=== PATIENT | female | born 1955 | race Caucasian/White ===

== ENCOUNTER 2017-03-02 08:56 | Day surgery (SDC) | payer BC ==
[2017-02-25 10:11] VITALS: BMI 34.3
[~2017-03-02 08:56] MED LIST: LACTATED RINGERS 1,000 ML IV SCH; LIDOCAINE 1% 20 ML VIAL (10MG/ML) FOR IV START INTRADERMA PRN
[2017-03-02 09:13] VITALS: RESP 16; TEMP 97.9
[2017-03-02] MEDS ORDERED: LIDOCAINE 1% INJ 10MG/ML (20 ML MDV) ONE (09:31)
[2017-03-02] MEDS ORDERED: PROPOFOL 10 MG/ML 20 ML VIAL IV ONE (09:31)
--- NOTE | 2017-03-02 09:35 | P.GSHP ---
History of Present Illness H&P Date: 03/02/17 Chief Complaint: GERD with Falcon's esophagus Patient here today for upper endoscopy. She has a personal history of Falcon' s esophagus. She underwent RFA for the treatment of her Falcon's esophagus but they were unable to complete the treatment because her insurance stopped covering this per the patient. She still has intermittent reflux at times. She takes omeprazole daily. Denies dysphagia. Past Medical History Past Medical History: GERD/Reflux, Osteoarthritis (OA) Additional Past Medical History / Comment(s): HIATAL HERNIA, FALCON'S ESOPHAGUS History of Any Multi-Drug Resistant Organisms: None Reported Past Surgical History: Section, Hernia Repair Additional Past Surgical History / Comment(s): EGD, radiofrequency ablation for acid reflux Past Anesthesia/Blood Transfusion Reactions: No Reported Reaction Additional Past Anesthesia/Blood Transfusion Reaction / Comment(s): SICK IN CAR FROM EXHAUST FUMES ONLY Past Psychological History: No Psychological Hx Reported Smoking Status: Former smoker Past Alcohol Use History: Rare Additional Past Alcohol Use History / Comment(s): smoked 15 years 1ppd quit 1996 Past Drug Use History: None Reported - Past Family History Mother Family Medical History: Cancer Additional Family Medical History / Comment(s): stomach cancer Medications and Allergies Home Medications Medication Instructions Recorded Confirmed Type Calcium Carbonate [Tums] 1 tab PO DIRECTED 08/27/14 02/25/17 History Omeprazole [PriLOSEC] 20 mg PO AC-BID 08/28/14 02/25/17 History Allergies Allergy/AdvReac Type Severity Reaction Status Date / Time No Known Allergies Allergy Verified 03/02/17 09:05 Surgical - Exam Vital Signs Temp Pulse Resp BP Pulse Ox 97.9 F 91 16 127/84 95 03/02/17 09:11 03/02/17 09:11 03/02/17 09:11 03/02/17 09:11 03/02/17 09:11 Physical exam: General: Well-developed, well-nourished HEENT: Normocephalic, sclerae nonicteric Abdomen: Nontender, nondistended Extremities: No edema Neuro: Alert and oriented Assessment and Plan (1) GERD (gastroesophageal reflux disease) Narrative/Plan: Will proceed with upper endoscopy at this time. Status: Acute
--- NOTE | 2017-03-02 09:52 | P.PCN ---
Date of Procedure: 03/02/17 Procedure(s) Performed: Preoperative Dx: GERD, Vega's esophagus Postoperative Dx: Gastritis, hiatal hernia Procedure: EGD with Bx Anesthesia: Sedation Endoscopist: Dr. Stanley Specimens: Antrum, distal esophagus Endoscopic Procedure: The patient was on the endoscopy table in the left decubitus position. The Olympus gastroscope was inserted into the oropharynx and passed under direct visualization to the region of the third portion of the duodenum. From that point the scope was slowly withdrawn inspecting all surfaces carefully. There were no neoplastic inflammatory or polypoid lesions throughout the duodenum. The pylorus was widely patent. The stomach was carefully inspected. There was gastritis present. A biopsy of the antrum took place to rule out H. pylori. Attempts at retroflexion were challenging as the patient was not retaining any of our gastric insufflation. I could not visualize the hiatus from a retroflexed standpoint. The scope was withdrawn into the proximal stomach near the GE junction and I thought I could identify a depression on the stomach suggesting the presence of a [id number] sized hiatal hernia. The distal esophagus itself showed no active inflammation. There were 2-3 small islands of suspected Vega's esophagus but these were quite small measuring only a few millimeters in size. Biopsies took place of these areas. The remainder the esophagus appeared normal. The patient was then taken to the recovery room in stable condition per anesthesia guidelines. Recommendations: Await biopsy results.
[2017-03-02 10:12] VITALS: BP 125/81; PULSE 90
== END 2017-03-02 10:37 | disposition home or self-care (01) ==
LOC: ORWHC2ENDO 08:56
PROVIDERS: ATTEND Surgery
DX: K21.0 Gastro-esophageal reflux disease with esophagitis (principal); K22.70 Barrett's esophagus without dysplasia; K29.50 Unspecified chronic gastritis without bleeding; K44.9 Diaphragmatic hernia without obstruction or gangrene; Z87.891 Personal history of nicotine dependence; Z79.899 Other long term (current) drug therapy
CPT/HCPCS: 88305; 88342; 43239; J2001; J2704

== ENCOUNTER → 2017-03-09 | Outpatient (CLI) | payer BC ==
--- NOTE | 2017-03-09 11:56 | FL ---
Esophagram INDICATION: History of Vega's esophagitis with radiofrequency ablation TECHNIQUE: Double air-contrast technique FINDINGS: Esophagus is slightly prominent with the distal portion. The esophageal course is normal. G astroesophageal junction opens to normal caliber. A large hiatal hernia is present. No mucosal abnormality is identified in the double contrast study. No stenosis is evident. Reflux was evident during this exam. IMPRESSIONS: 1. Gastroesophageal reflux. 2. Large hiatal hernia. 3. Mucosal anomaly is not identified. Direct visualization may be required for close evaluation.
== END | disposition home or self-care (01) ==
LOC: RADFLWHC 10:20
PROVIDERS: ATTEND Surgery
DX: K21.9 Gastro-esophageal reflux disease without esophagitis (principal); K44.9 Diaphragmatic hernia without obstruction or gangrene
CPT/HCPCS: 74220

== ENCOUNTER 2017-04-22 09:57 | Observation (INO) | payer BC ==
[2017-04-18 09:51] VITALS: BMI 33.5
--- NOTE | 2017-04-21 16:47 | P.GSHP ---
History of Present Illness H&P Date: 04/22/17 Chief Complaint: Chronic reflux Patient is well-known to our service. She has a personal history of chronic reflux disease. He has had several upper endoscopies performed over the last several years. She has a history of prior Falcon's esophagus. She was seen and underwent radiofrequency ablation outside town for her Falcon's esophagus. She apparently never ablation treatments. She is not interested in following back with the specialist for this at this time. She had a recent follow-up upper endoscopy on March 02. She was found to have a moderate sized hiatal hernia with only 2-3 small islands of Falcon's esophagus. Recent biopsies were benign. A esophagram was performed on 03/09. The patient was found to have a large hiatal hernia with reflux. She had a previous esophageal manometry which showed ineffective esophageal peristalsis. Patient presented to the office requesting antireflux surgery. - Review of Systems Comment: The patient denies any acute changes in his vision or hearing, no dysphagia or odynophagia, no chest pain or shortness of breath, no dysuria or hematuria, no headache, no runny nose, no rectal bleeding or melena, no unexplained weight loss Past Medical History Past Medical History: GERD/Reflux, Osteoarthritis (OA) Additional Past Medical History / Comment(s): HIATAL HERNIA, FALCON'S ESOPHAGUS History of Any Multi-Drug Resistant Organisms: None Reported Past Surgical History: Section, Hernia Repair, Orthopedic Surgery Additional Past Surgical History / Comment(s): EGD, radiofrequency ablation for acid reflux Past Anesthesia/Blood Transfusion Reactions: No Reported Reaction, Motion Sickness Additional Past Anesthesia/Blood Transfusion Reaction / Comment(s): SICK IN CAR FROM EXHAUST FUMES ONLY Past Psychological History: No Psychological Hx Reported Smoking Status: Former smoker Past Alcohol Use History: Rare Additional Past Alcohol Use History / Comment(s): smoked 15 years 1ppd quit 1996 Past Drug Use History: None Reported - Past Family History Mother Family Medical History: Cancer Additional Family Medical History / Comment(s): stomach cancer Father Family Medical History: Congestive Heart Failure (CHF) Medications and Allergies Home Medications Medication Instructions Recorded Confirmed Type Calcium Carbonate [Tums] 1 tab PO DIRECTED 08/27/14 04/18/17 History Esomeprazole Magnesium [NexIUM] 40 mg PO DAILY 04/18/17 04/18/17 History Allergies Allergy/AdvReac Type Severity Reaction Status Date / Time No Known Allergies Allergy Verified 04/18/17 09:41 Surgical - Exam Physical exam: General: Well-developed, well-nourished HEENT: Normocephalic, sclerae nonicteric Abdomen: Nontender, nondistended Extremities: No edema Neuro: Alert and oriented Assessment and Plan (1) GERD (gastroesophageal reflux disease) Narrative/Plan: Patient And I discussed the surgical options in detail on several occasions. At this time she is being scheduled for laparoscopic hiatal hernia repair. We discussed the options of fundoplication partial and/or complete and I decided to hold off on fundoplication at this time because of the prior manometry showing ineffective esophageal peristalsis. The risks of bleeding, infection, perforation, abscess, fistula formation, dysphagia, chronic reflux, potential need for Additional antacid therapy, Conversion to an open procedure, and anesthesia-related complications were discussed. She understands to proceed. Close clinical follow-up with regularly scheduled upper endoscopies will still be required because of her history of Falcon's esophagus. Status: Acute
[~2017-04-22 09:57] MED LIST changes: +DEXAMETHASONE SOD PHOSPHATE 10 MG/ML 1 ML VIAL IV ONE; +HEPARIN SODIUM,PORCINE 5,000 UNIT/ML 1 ML VIAL SQ ONE; -LIDOCAINE 1% 20 ML VIAL (10MG/ML) FOR IV START INTRADERMA PRN; +MIDAZOLAM 2 MG/2 ML VIAL IV PRN; +ONDANSETRON 4 MG/2 ML VIAL IVP ONE; +Pre Op ABX Message 1 EACH MISC MISCELLANE ONE; +SCOPOLAMINE 1.5MG/72HR PATCH TRANSDERM ONE
[2017-04-22] MEDS ORDERED: LIDOCAINE 1% 20 ML VIAL (10MG/ML) FOR IV START INTRADERMA ONE (10:37)
[2017-04-22] MEDS ORDERED: ROCURONIUM BROMIDE 10 MG/ML 10 ML VIAL IV ONE (11:37)
[2017-04-22] MEDS ORDERED: NEOSTIGMINE 1 MG/ML 10 ML VIAL ONE (11:37)
[2017-04-22] MEDS ORDERED: LIDOCAINE 1% INJ 10MG/ML (20 ML MDV) ONE (11:37)
[2017-04-22] MEDS ORDERED: PROPOFOL 10 MG/ML 20 ML VIAL IV ONE (11:37)
[2017-04-22] MEDS ORDERED: SUCCINYLCHOLINE CHLORIDE 100 MG/5 ML SYR IV ONE (11:37)
[2017-04-22] MEDS ORDERED: GLYCOPYRROLATE 0.2 MG/ML 2 ML VIAL ONE (11:37)
[2017-04-22] MEDS ORDERED: MIDAZOLAM 2 MG/2 ML VIAL ONE (11:37)
[2017-04-22] MEDS ORDERED: fentaNYL (PF) 50 MCG/ML 2 ML AMP ONE (11:37)
[2017-04-22] MEDS ORDERED: LABETALOL 5 MG/ML VIAL MDV ONE (11:37)
[2017-04-22] MEDS ORDERED: SODIUM CHLORIDE 0.9% 100 ML with ceFAZolin 2,000 MG IV ONE ×2 (11:53)
[2017-04-22] MEDS ORDERED: LACTATED RINGERS 1,000 ML IV ONE (12:00)
[2017-04-22] MEDS ORDERED: BUPIVACAIN-EPI 0.25%-1:200,000 30 ML VIAL SQ ONE ×2 (12:04→12:09)
[2017-04-22] MEDS ORDERED: METHYLENE BLUE 15 MG in DEXTROSE 5% IN WATER 500 ML IRRIGATION ONE ×2 (12:53)
[2017-04-22] MEDS ORDERED: HYDROcodone/APAP 5-325MG 1 EACH TAB PO PRN (14:18)
[2017-04-22] MEDS ORDERED: HYDROmorphone 1 MG/ML 1 ML SYRINGE IVP PRN ×2 (14:18→22:52)
[2017-04-22] MEDS ORDERED: NALOXONE 0.4 MG/ML 1 ML VIAL IV PRN (14:18)
--- NOTE | 2017-04-22 14:24 | P.OP ---
Date of Procedure: 04/22/17 Preoperative Diagnosis: Postoperative Diagnosis: Procedure(s) Performed: PROCEDURE(S) PERFORMED: PREOPERATIVE DIAGNOSIS: GERD, hiatal hernia POSTOPERATIVE DIAGNOSIS: Same PROCEDURE: Laparoscopic repair hiatal hernia with mesh SURGEON: Jaden EBL: 5 mL ANESTHESIA: General COMPLICATIONS: None OPERATIVE PROCEDURE: Patient was placed in the operating table in the supine position. She was placed under general anesthesia at that time. The abdomen was prepped and draped in sterile fashion after the patient was placed in lithotomy. A 5 mm optical trocar was used to enter the abdominal cavity in the left upper quadrant. Insufflation took place to 15 monitor mercury. An additional right subxiphoid 5 mm trocar was then placed under direct relation and then removed. 2 additional 5 mm trochars were placed in the right upper quadrant and left upper quadrant under direct relation and a 10 mm trocar in the left upper quadrant inferior to the initial 5 mm spot. there was an adhesion between the omentum and the diaphragm anterior to the left lobe of the liver that was divided using the fissure device. The left lower liver was retracted anteriorly using the Bahman medium liver retractor. The diaphragm was inspected. The patient had a moderate to large sized hiatal hernia. Circumferentially the phrenoesophageal ligament was incised identifying the actual defect. The proximal greater curvature of the stomach was mobilized by dividing the short gastric vasculature. The posterior short gastrics were likewise divided. I had an adequate retrogastric window at this point. The 58- Icelandic bougie dilator was advanced into the stomach. This helped me identify how tight to make the hiatus. 3 separate 2-0 Ethibond sutures were used to reapproximate the laquita posteriorly. These were tied down using the tie knot device. The dilator was then readvanced and the hiatus appeared appropriately tightened at that point. a Sutton bio a mesh was chosen and placed covering the retrogastric space where the crura had been repaired. The mesh was sutured to either crura using a single 2-0 Ethibond stitch. No bleeding was encountered. The remainder the stomach and upper abdominal cavity appeared normal. The insufflation was evacuated. The skin at all 5 incisions were closed using 4-0 Monocryl sutures. Steri-Strips and sterile dressings were then applied. DISPOSITION: Stable to recovery room Implants: Indications for Procedure: Operative Findings: Description of Procedure:
[2017-04-22] MEDS: HYDROmorphone 1 MG/ML 1 ML SYRINGE IVP PRN ×2 (14:54→15:02)
[2017-04-22] MEDS: D5-0.45% NACL WITH KCL 20MEQ/L 1,000 ML IV SCH ×2 (16:24→23:29)
[2017-04-22] MEDS: ONDANSETRON 4 MG/2 ML VIAL IVP PRN (16:36)
[2017-04-22] MEDS: HEPARIN SODIUM,PORCINE 5,000 UNIT/ML 1 ML VIAL SQ SCH ×2 (18:43→23:08)
[2017-04-22] MEDS: METOCLOPRAMIDE 5 MG/ML 2 ML VIAL IVP PRN (20:03)
[2017-04-22] MEDS: PANTOPRAZOLE 40 MG/10 ML VIAL IVP SCH (23:29)
[2017-04-23] MEDS: ONDANSETRON 4 MG/2 ML VIAL IVP PRN (03:25)
[2017-04-23] MEDS: METOCLOPRAMIDE 5 MG/ML 2 ML VIAL IVP PRN (04:51)
[2017-04-23] MEDS: D5-0.45% NACL WITH KCL 20MEQ/L 1,000 ML IV SCH (06:32)
[2017-04-23] MEDS ORDERED: PANTOPRAZOLE 40 MG/10 ML VIAL IV SCH (09:00)
[2017-04-23] MEDS: PANTOPRAZOLE 40 MG/10 ML VIAL IVP SCH (09:38)
[2017-04-23] MEDS: HEPARIN SODIUM,PORCINE 5,000 UNIT/ML 1 ML VIAL SQ SCH (09:39)
[2017-04-23 09:47] VITALS: RESP 16
--- NOTE | 2017-04-23 09:50 | P.PN ---
Subjective Principal diagnosis: GERD Patient had bad nausea last night. It is improved this morning. Upper GI is pending this morning. She is afebrile. Objective - Vital Signs Vital signs: Vital Signs Temp 97.8 F 04/23/17 09:46 Pulse 88 04/23/17 09:46 Resp 16 04/23/17 09:46 BP 126/69 04/23/17 09:46 Pulse Ox 94 L 04/23/17 09:46 Intake & Output 04/22/17 04/23/17 04/23/17 18:59 06:59 18:59 Intake Total 1950 Output Total 5 1 Balance 1944 Intake: IV 1949 Output: Urine 1 Estimated Blood Loss 5 Other: # Voids 2 1 1 - Exam Abdomen: Soft, nontender, nondistended, incision clean and dry Assessment and Plan (1) GERD (gastroesophageal reflux disease) Narrative/Plan: Await upper GI this morning. Possible discharge later today if tolerating liquids. Status: Acute
--- NOTE | 2017-04-23 10:10 | CONS ---
DATE OF CONSULTATION: 04/22/2017 REASON FOR CONSULTATION: Degenerative joint disease , hiatal hernia and other multiple medical issues requested by Dr. Stanley. HISTORY OF PRESENT ILLNESS: This 61 -year-old with a past medical history of gastroesophageal reflux disease, degenerative joint disease, history of hiatal hernia, history of Vega's esophagus being followed by Dr. Osborne in the outpatient setting has underwent laparoscopic repair of hiatal hernia with mesh with Dr. Stanley. the patient complaining of some postoperative nausea. There is no history of fever, rigors or chills. No history of headache, loss of consciousness or seizures. No chest pain or palpitations, shortness of breath, hematochezia, melena at this time. Past medical history of GERD, DJD, hiatal hernia, Vega's esophagus, section. MEDICATIONS: Home medications are: 1. Nexium 40 mg daily. 2. TUMS one tablet p.o. daily p.r.n. 3. Belton 5 mg q.4 p.r.n. ALLERGIES: None. FAMILY HISTORY: History of cancer, stomach cancer in the family. SOCIAL HISTORY: No history of current smoking, no alcohol intake. Previous history of smoking. REVIEW OF SYSTEMS: ENT: No diminishing hearing or diminished vision. CARDIOVASCULAR: No angina or palpitations. RESPIRATORY: As mentioned earlier. GASTROINTESTINAL: No nausea or vomiting. : No dysuria. Nervous system: No numbness or weakness. ALLERGY/IMMUNOLOGY: No asthma or hayfever. MUSCULOSKELETAL: As mentioned earlier. HEMATOLOGY/ONCOLOGY: No history of anemia. ENDOCRINE: No history of diabetes or hypothyroidism. CONSTITUTIONAL: As mentioned earlier. DERMATOLOGY: Negative. RHEUMATOLOGY: Negative. PSYCHIATRY: As mentioned earlier. PHYSICAL EXAMINATION: Alert and oriented times three. Pulse 86. Blood pressure 120/63. Respiratory rate 22. Temperature normal, pulse ox 97% on room air. HEENT: Conjunctivae normal. NECK: No jugular venous distention. CARDIOVASCULAR: S1, S2 muffled. RESPIRATORY: Breath sounds diminished at the bases. No rhonchi, no crackles. ABDOMEN: Soft, status post surgery. Legs: No edema. No swelling. CENTRAL NERVOUS SYSTEM: Higher functions as mentioned earlier. Moves all four limbs. LYMPHATICS: No lymph nodes palpable in the neck, axillae or groin. SKIN: No ulcer, rash or bleeding. LABS: Not available. ASSESSMENT: 1. Status post laparoscopic repair of hiatal hernia with mesh. 2. Postoperative nausea. 3. Gastroesophageal reflux disease. 4. Degenerative joint disease. 5. Hiatal hernia. 6. History of Vega's esophagus. 7. History of section. 8. History of hernia repair. 9. History of degenerative joint disease. RECOMMENDATIONS AND DISCUSSION: In this 61-year-old woman who was admitted with multiple medical issues, at this time, I recommend continue current medications, continue symptomatic treatment, DVT prophylaxis, incentive spirometry, resume the home medications, we will follow the patient closely. The patient may be asked to follow with Dr. Osborne closely after discharge. Proton pump inhibitors. See orders for details.
[2017-04-23 10:42] LABS: Basophils % (A) 0 %; CH 26.8; CHCM 32.3; Eosinophils % (A) 0 %; HCT 33.2 % (34.0-46.0); HDW 2.42; HGB 10.8 gm/dL (11.4-16.0); Luc # (Auto) 0.06; Luc % (Auto) 1; Lymphocytes # (A) 0.8 k/uL (1.0-4.8); Lymphocytes % (A) 12 %; MCH 27.2 pg (25.0-35.0); MCHC 32.6 g/dL (31.0-37.0); MCV 83.3 fL (80.0-100.0); Mean Platelet Volume 7.4; Monocytes # (A) 0.3 k/uL (0-1.0); Monocytes % (A) 5 %; Neutrophils # (A) 5.3 k/uL (1.3-7.7); Neutrophils % (A) 82 %; RBC 3.98 m/uL (3.80-5.40); RDW 12.8 % (11.5-15.5); WBC 6.5 k/uL (3.8-10.6)
--- NOTE | 2017-04-23 10:43 | FL ---
EXAMINATION TYPE: FL UGI w esophagus DATE OF EXAM: 04/23/2017 LIMITED UGI-ESOPHAGRAM: CLINICAL HISTORY: Hiatal hernia and Vega's esophagus with Abimael. Location surgery yesterday. Comparison: Esophagram March 09, 2017. TECHNIQUE: Limited esophagram is performed utilizing 20 oz of Omnipaque 350. A total of 74 seconds o f fluoroscopic time was utilized during procedure. FINDINGS: The patient swallowed contrast without difficulty or delay. Esophageal peristalsis and mo tility are within normal limits. There is good flow of contrast along the diaphragmatic hiatus into t he stomach, there is no evidence of contrast extravasation to suggest leak. No persistent large hiata l hernia is seen. Patient remains asymptomatic. There is persistent contrast filled rectangular shaped area near level of diaphragmatic hiatus felt a clari site of sutures could reflect a small diverticulum perhaps postsurgical in etiology as is not cl early seen on prior study. IMPRESSION: Interval successful surgical reduction of large hiatal hernia. No leak is evident. No obs truction is noted.
[2017-04-23 10:48] LABS: ALT 31 U/L (9-52); AST 28 U/L (14-36); Alkaline Phosphatase 115 U/L (38-126); Anion Gap 5 mmol/L; Blood Urea Nitrogen 9 mg/dL (7-17); Calcium 8.7 mg/dL (8.4-10.2); Carbon Dioxide 25 mmol/L (22-30); Chloride 104 mmol/L (98-107); Glucose 147 mg/dL (74-99); Non-African American GFR(MDRD) >60 (>60 ml/min/1.73 sqM); Potassium 4.3 mmol/L (3.5-5.1); Sodium 134 mmol/L (137-145); Total Bilirubin 0.5 mg/dL (0.2-1.3); Total Protein 6.1 g/dL (6.3-8.2)
[2017-04-23 11:58] VITALS: BP 108/66; PULSE 67; TEMP 97.5
[2017-04-23] MEDS ORDERED: KETOROLAC 30 MG/ML 1 ML VIAL IVP SCH (12:00)
--- NOTE | 2017-04-23 20:17 | PN ---
DATE OF SERVICE: 04/23/2017 This 61-year-old woman was admitted after laparoscopic repair of hiatal hernia with mesh, is improving significantly. No chest pain or palpitations. No fever. On exam, alert and oriented x3. Pulse is 67, blood pressure 108/66, respirations 16, temperature 97.5, pulse ox 100% on room air. HEENT: Conjunctivae normal. NECK: No jugular venous distension. CARDIOVASCULAR: S1 and S2 muffled. RESPIRATORY: Breath sounds diminished in the bases. No rhonchi. No crackles. ABDOMEN: Soft, status post surgery. NERVOUS SYSTEM: Nonfocal. LABS: Hemoglobin 10.8. Sodium 134. ASSESSMENT: 1. Status post laparoscopic repair of hiatal hernia with mesh. 2. Postoperative nausea, improved. 3. Hyponatremia, mild. 4. Anemia, normocytic, possibly dilutional. 5. Gastroesophageal reflux disease history. 6. Degenerative joint disease. 7. History of hiatal hernia. 8. History of Vega esophagus. 9. History of section. 10. History of hernia repair. 11. History of degenerative joint disease. RECOMMENDATIONS AND DISCUSSION: Will continue current medications, continue symptomatic treatment with incentive spirometry. Continue with proton pump inhibitors and closely follow with in the outpatient setting. Rest of the recommendations per Surgery. MTDD
== END 2017-04-23 15:50 | disposition home or self-care (01) ==
LOC: OR 09:57 → EDSTATUS 12:40 → 6PED 14:03 → OR 04-23 04:00
PROVIDERS: ADMIT Surgery; ATTEND Surgery
DX: K44.9 Diaphragmatic hernia without obstruction or gangrene (principal); K21.9 Gastro-esophageal reflux disease without esophagitis; K22.70 Barrett's esophagus without dysplasia; M19.90 Unspecified osteoarthritis, unspecified site; Z87.891 Personal history of nicotine dependence; Z80.0 Family history of malignant neoplasm of digestive organs; Z82.49 Family history of ischemic heart disease and other diseases of the circulatory system; Z79.899 Other long term (current) drug therapy; K91.89 Other postprocedural complications and disorders of digestive system; R11.0 Nausea; D64.9 Anemia, unspecified; E87.1 Hypo-osmolality and hyponatremia
CPT/HCPCS: 43282; 80053; 85025; 74240; G0378; C1781; J2250; J1644 ×2; J1100; J2710; J2765 ×2; Q9967; J2405 ×2; J0690; J2001; J3010; J1885; J1170 ×2; J0330; J2704; C9113 ×2

== ENCOUNTER → 2021-07-04 | Outpatient (CLI) | payer MEDICARE, OTHER ==
[2021-07-04 10:41] LABS: African American GFR (CKD) >90 (>60 ml/min/1.73 sqM); Anion Gap 6 mmol/L; Blood Urea Nitrogen 16 mg/dL (7-17); Calcium 9.6 mg/dL (8.4-10.2); Carbon Dioxide 27 mmol/L (22-30); Chloride 103 mmol/L (98-107); Glucose 90 mg/dL (74-99); Non-African American GFR(CKD) >90 (>60 ml/min/1.73 sqM); Potassium 4.5 mmol/L (3.5-5.1); Sodium 136 mmol/L (137-145)
[2021-07-04 11:14] LABS: Appearance,Urine Clear (Clear); Bilirubin,Urine Negative (Negative); Blood,Urine Negative (Negative); Color,Urine Light Yellow; Glucose,Urine (UA) Negative (Negative); Ketones,Urine Negative (Negative); Leukocyte Esterase,Urine Negative (Negative); Nitrite,Urine Negative (Negative); PH, Urine 6.5 (5.0-8.0); Protein,Urine Negative (Negative); Specific Gravity,Urine 1.005 (1.001-1.035); Urobilinogen,Urine <2.0 mg/dL (<2.0)
== END | disposition home or self-care (01) ==
LOC: LABPAT 09:35
PROVIDERS: ATTEND Urology
DX: Z01.812 Encounter for preprocedural laboratory examination (principal); N81.9 Female genital prolapse, unspecified; R35.0 Frequency of micturition
CPT/HCPCS: 36415; 80048; 81003; 87086

== ENCOUNTER 2021-07-10 05:39 | Observation (INO) | payer MEDICARE, OTHER ==
[2021-07-06 15:41] VITALS: BMI 33.6
--- NOTE | 2021-07-09 12:44 | P.HPIHPCON ---
History of Present Illness H&P Date: 07/09/21 Chief Complaint: Cystocele This is 65-year-old female history of stage III cystocele, she is symptomatic secondary to her cystocele. Option of surgery, vaginal repair, and a robotic sacralcolpopexy was discussed with her in detail. Discussed with her the risk and benefit of each approach. She agreed to proceed with a robotic sacral colpopexy. Discussed with her we would be using mesh, discussed the risk which includes but not limited to bleeding, infection, mesh erosion through the vagina, bladder, and rectum, potential of recurrence of the cystocele, and persistent symptoms. Discussed also with her risk from anesthesia. She understood all the risk and agreed to proceed with robotic sacral colpopexy, of note, she will also undergo hysterectomy male tediously, this would be performed by Dr. Hansen Consent for Procedure: I have explained the operation/procedure to the patient, including the risks, benefits, side effects, alternative therapies (including not receiving the proposed treatment or service), the likelihood of the patient achieving his/her goals, and potential recuperation problems for the procedure/sedation/analgesia, as well as any blood products, if indicated. I also explained to the patient the risks, benefits and side effects of the alternatives, as well as the risks related to not receiving the proposed procedure, care, treatment, or services. Past Medical History Past Medical History: GERD/Reflux, Osteoarthritis (OA) Additional Past Medical History / Comment(s): HIATAL HERNIA, FALCON'S ESOPHAGUS History of Any Multi-Drug Resistant Organisms: None Reported Past Surgical History: Section, Hernia Repair, Orthopedic Surgery Additional Past Surgical History / Comment(s): EGD, radiofrequency ablation for acid reflux, LT KNEE SX Past Anesthesia/Blood Transfusion Reactions: No Reported Reaction, Motion Sickness Additional Past Anesthesia/Blood Transfusion Reaction / Comment(s): SICK IN CAR FROM EXHAUST FUMES ONLY Smoking Status: Former smoker - Past Family History Mother Family Medical History: Cancer Additional Family Medical History / Comment(s): stomach cancer Father Family Medical History: Congestive Heart Failure (CHF) Medications and Allergies Home Medications Medication Instructions Recorded Confirmed Type Esomeprazole Magnesium [NexIUM] 40 mg PO DAILY 04/18/17 07/06/21 History Allergies Allergy/AdvReac Type Severity Reaction Status Date / Time No Known Allergies Allergy Verified 08/23/21 15:20 Surgical - Exam - General no distress, no pain - Eyes PERRL, normal ocular movement - ENT normal nares, normal mucosa - Respiratory normal expansion, normal respiratory effort - Abdomen Abdomen: soft, non tender - Psychiatric oriented to time, oriented to person, oriented to place Assessment and Plan Assessment: 65-year-old female with history of stage III cystocele OR for robotic sacral colpopexy, she will undergo a robotic hysterectomy by Dr. Hansen in the same setting
--- NOTE | 2021-07-09 17:31 | P.HPOB ---
History of Present Illness H&P Date: 07/09/21 Chief Complaint: Vaginal prolapse Dilma is a 65-year-old female with grade 3 cystocele and prolapse of the uterus to approximately second-degree. She is scheduled for robotic-assisted laps scopic hysterectomy with I lateral soft Pingel oophorectomy and she is also going to undergo a sacral colpopexy by urology at the same time. Risks/benefits/alternatives to this procedure were reviewed with patient in detail and all questions are answered for her prior to proceeding to the operating room. Her symptoms are noted to have been progressing over the last year or so and she has seen and was referred to me by urology whose history and physical and workup are also included in this chart. Past Medical History Past Medical History: GERD/Reflux, Osteoarthritis (OA) Additional Past Medical History / Comment(s): HIATAL HERNIA, FALCON'S ESOPHAGUS History of Any Multi-Drug Resistant Organisms: None Reported Past Surgical History: Section, Hernia Repair, Orthopedic Surgery Additional Past Surgical History / Comment(s): EGD, radiofrequency ablation for acid reflux, LT KNEE SX Past Anesthesia/Blood Transfusion Reactions: No Reported Reaction, Motion Sickness Additional Past Anesthesia/Blood Transfusion Reaction / Comment(s): SICK IN CAR FROM EXHAUST FUMES ONLY Smoking Status: Former smoker - Past Family History Mother Family Medical History: Cancer Additional Family Medical History / Comment(s): stomach cancer Father Family Medical History: Congestive Heart Failure (CHF) Medications and Allergies Home Medications Medication Instructions Recorded Confirmed Type Esomeprazole Magnesium [NexIUM] 40 mg PO DAILY 04/18/17 07/06/21 History Allergies Allergy/AdvReac Type Severity Reaction Status Date / Time No Known Allergies Allergy Verified 07/06/21 15:20 Exam Osteopathic Statement: *. No significant issues noted on an osteopathic structural exam other than those noted in the History and Physical/Consult. - OBG Physical Exam Breast: both: normal (no masses) Abdomen: bowel sounds normal, no diffuse tenderness, no bruit present, no guarding noted, no hepatomegaly, no splenomegaly, no mass Vulva: both: normal Vagina: normal moisture, no discharge, cystocele Cervix: no lesion, no discharge Uterus: normal size, normal contour Adnexa: both: normal Anus/Rectum: normal perianal skin, no rectal mass, no hemorrhoids, heme negative
[~2021-07-10 05:39] MED LIST changes: -DEXAMETHASONE SOD PHOSPHATE 10 MG/ML 1 ML VIAL IV ONE; +DEXAMETHASONE SOD PHOSPHATE 4 MG/ML 1 ML VIAL IV ONE; -HEPARIN SODIUM,PORCINE 5,000 UNIT/ML 1 ML VIAL SQ ONE; +HEPARIN SODIUM,PORCINE/PF 5,000 UNIT/0.5 ML SYRINGE SQ PRN; -LACTATED RINGERS 1,000 ML IV SCH; +LIDOCAINE 1% (10MG/ML) FOR IV START INTRADERMA PRN; -MIDAZOLAM 2 MG/2 ML VIAL IV PRN; -Pre Op ABX Message 1 EACH MISC MISCELLANE ONE; -SCOPOLAMINE 1.5MG/72HR PATCH TRANSDERM ONE
[2021-07-10] MEDS: LACTATED RINGERS 1,000 ML IV SCH ×2 (06:37→06:46)
[2021-07-10] MEDS ORDERED: NEOSTIGMINE 1 MG/ML 10 ML VIAL ONE (07:40)
[2021-07-10] MEDS ORDERED: LIDOCAINE 1% INJ 10MG/ML (20 ML MDV) ONE (07:40)
[2021-07-10] MEDS ORDERED: ROCURONIUM 10 MG/ML (5 ML VIAL) IV ONE (07:40)
[2021-07-10] MEDS ORDERED: MIDAZOLAM 2 MG/2 ML VIAL ONE (07:40)
[2021-07-10] MEDS ORDERED: HYDROmorphone (PF) 1 MG/ML ONE (07:40)
[2021-07-10] MEDS ORDERED: BUPIVACAINE (PF) 0.25% 30 ML VIAL SQ ONE (07:40)
[2021-07-10] MEDS ORDERED: PROPOFOL 10 MG/ML 20 ML VIAL IV ONE (07:40)
[2021-07-10] MEDS ORDERED: fentaNYL (PF) 50 MCG/ML 2 ML AMP ONE (07:40)
[2021-07-10] MEDS ORDERED: GLYCOPYRROLATE 0.2 MG/ML 2 ML VIAL ONE (07:40)
[2021-07-10] MEDS ORDERED: KETOROLAC 15 MG/ML 1 ML VIAL ONE (07:40)
[2021-07-10] MEDS ORDERED: SUCCINYLCHOLINE CHLORIDE 100 MG/5 ML SYR IV ONE (07:40)
[2021-07-10] MEDS ORDERED: HYDROcodone/APAP 5-325MG 1 EACH TAB PO PRN (08:28)
--- NOTE | 2021-07-10 09:39 | P.OP ---
Date of Procedure: 07/10/21 Preoperative Diagnosis: Vaginal prolapse Postoperative Diagnosis: Same Procedure(s) Performed: Robotic-assisted laparoscopic hysterectomy with bilateral salpingo-oophorectomy Anesthesia: HILARY Surgeon: Williams Hansen Flight Security Specialist #1: Ashli Luis Estimated Blood Loss (ml): 25 Pathology: other (Uterus cervix and fallopian tubes and ovaries) Condition: stable Disposition: floor Operative Findings: Perforation noted of the uterus forcing some adjustments in tools used for the procedure Description of Procedure: Patient was taken to the operating suite where a general anesthetic was found be adequate. She was prepped and draped in normal sterile fashion and placed in the dorsal lithotomy position. Initially a speculum was inserted in the vagina and the anterior local cervix identified and grasped with an Allis clamp. Sutu res were placed at 3 and 9 and then noting a cervical stenosis normal dilators would not dilate a hemostat was used to slightly open the cervix and then dilators were used. It was felt like there was a potential perforation based on the angle which the dilators were entering a Kitty manipulator was inserted on but was later removed as it was noted to be out of position. Once the mid there was inserted Toth cath was placed all the other instruments were removed and gloves were changed and attention was turned to abdominal portion procedure. Initially 2 mL of quarter percent Marcaine were injected slightly superior to the umbilicus and through this injected anesthetic a 5 mm skin incision was made and through this incision, under direct visualization with an optical trocar and sleeve the camera was inserted. Once peritoneal placement was assured gas was allowed to fully insufflate the abdomen and patient was placed and 25 Trendelenburg. Once completed 2 lateral ports were placed on the left and right hand side and 8 mm trochars for the robot were placed. A fourth port and sleeve were inserted through a 1 cm incision between the left lateral and the medial port and the camera port was exchanged for robotic port immediately upon elevating the uterus it was noted that the manipulator was not in the correct position so the middle ear was removed and a sponge stick was placed to just assist a little bit in movement of the uterus. The uterus was then elevated and tipped to the right side and the infundibular pelvic ligament was identified cauterized and transected. Tissues of the mesosalpinx were cauterized and transected to the round ligament Remley was cauterized transected and then the anterior and posterior leafs broad ligament were developed and vascularity on the left-hand side of the uterus was cauterized. Once the bladder flap Was entered with cautery and then undermined with a [place] grasper and incised across face uterus bluntly dissecting the bladder out of the operative field. Once this was completed right-hand side of the uterus was similarly developed. At this point the uterus had its vascularity cauterized and we're down to what we believed was the cervical region based on anatomy therefore I did re-scrub in and placed the Kitty manipulator without the guide stick and held tight with the stay sutures to the cervix that we could identify the cuff through the robot return to the robot this point cup was easily identifiable and with traction from below a posterior colpotomy was made with cup identified. We did follow the couple around 3 and 60 cheating head only slightly to maintain hemostasis. The balloon was blown up in the Kitty manipulator to maintain the pneumoperitoneum. Once 3 and 60 was obtained uterus was brought down into the vagina to maintain the pneumoperitoneum pedicles were verified a vascular hemostasis and then the incidents were exchanged for a make suture cut and cardia grasper and the vaginal cuff was closed in running fashion with 20 the lock suture. Once this was completed our portion procedure was completed and urology began their portion procedure. Please see their dictation for any information regarding this procedure. At the conclusion of my portion procedure patient was in stable condition doing well and there were no other competitions noted.
--- NOTE | 2021-07-10 11:18 | P.OP ---
Date of Procedure: 07/10/21 Preoperative Diagnosis: Pelvic organ prolapse Postoperative Diagnosis: Same Procedure(s) Performed: Robotic sacral colpopexy Implants: Coloplast mesh Anesthesia: VERNAA Surgeon: Edouard Pace Roofing Machine Tender #1: Precious Cowart Estimated Blood Loss (ml): 25 Pathology: none sent Condition: stable Disposition: PACU Indications for Procedure: This is 65-year-old female history of stage III cystocele, she is symptomatic secondary to her cystocele. Option of surgery, vaginal repair, and a robotic sacralcolpopexy was discussed with her in detail. Discussed with her the risk and benefit of each approach. She agreed to proceed with a robotic sacral colpopexy. Discussed with her we would be using mesh, discussed the risk which includes but not limited to bleeding, infection, mesh erosion through the vagina, bladder, and rectum, potential of recurrence of the cystocele, and persistent symptoms. Discussed also with her risk from anesthesia. She understood all the risk and agreed to proceed with robotic sacral colpopexy, of note, she will also undergo hysterectomy male tediously, this would be performed by Dr. Hansen Description of Procedure: She was taken to the OR and administered general anesthesia and placed in lithotomy position. Initially the robotic hysterectomy was performed by the gynecology team, please see op note by Dr. Hansen for that portion of the surgery. An additional 8 mm port was placed on the left lateral side. The robot was then re-docked and the power plant assistant sac between the patient's legs with a vaginal sizer. With firm upward traction on the vagina and angle downwards, and with the monopolar scissors and fenestrated bipolar and the bladder was completely reflected off the vagina. The pelvic floor. Care was taken to stay in the avascular plane between the bladder and the vagina. There was no entry into the bladder or the vagina. Minor bleeding points were controlled with bipolar. Once the anterior dissection was completed the attention was directed to the posterior dissection. The power plant assistant pushed the sizer in an upwards and the rectum was completely dissected off the vagina down to the perineal body. Again all minor bleeding points were coagulated. Tension was then directed to the sacral promontory. The sigmoid was reflected to the left with the fourth arm, and an incision was made on the peritoneum over the sacral promontory. The entire sacral promontory was dissected, and the fat was excised to expose adequate amount of periosteum and bone to place 2 layers of sutures. Hemostasis was confirmed. The peritoneum posteriorly was incised from the sacral promontory to the vaginal opening to facilitate placement of the mesh. Attention was now directed to the Y mesh. The Y mesh was trimmed to the necessary size and introduced into the body through the 12 mm port. The Y mesh was placed over the vagina with one limb each on the anterior and posterior vaginal wall. Using 2-0 Ethibond interrupted sutures 3 layers of sutures were placed thereby fixing the mesh to the anterior vaginal wall. Care was taken to advance the mesh all the way distally. Attention was then directed to the posterior vaginal wall and the mesh was fixed to the posterior vaginal wall using 2 layers of 2-0 Ethibond, 2 sutures in each layer. Again the sutures were placed as distally as possible to the perineal body. Attention was taken so as to not enter the vagina with the sutures. Once the 2 limbs of the Y mesh was securely placed, attention was directed to the sacral promontory. The power plant assistant was asked to push the sizer firmly superiorly and the single Lembert of the Y mesh was then fixed to the sacral promontory in 2 layers with interrupted sutures. Gortex interrupted sutures were used to fix the mesh to the periosteum of the sacral promontory. Once this was completed the sizer was removed from the vagina and inspection of the vagina with a speculum showed complete resolution of the cystocele Hemostasis was again confirmed. A 2-0 lock was then used to close the peritoneum incision so as to extrapertonialize the mesh completely. All the sutures and mesh pieces were removed. A count was performed which was correct. And the abdomen was desufflated and all ports were removed. All the incisions were closed with 4-0 Monocryl subcuticular sutures and the patient was sent to recovery in stable condition with the Toth catheter
[2021-07-10] MEDS: D5-0.45% NACL WITH KCL 20MEQ/L 1,000 ML IV SCH (13:13)
[2021-07-10] MEDS: KETOROLAC 15 MG/ML 1 ML VIAL IVP SCH ×2 (14:31→21:08)
[2021-07-10] MEDS: HEPARIN SODIUM,PORCINE/PF 5,000 UNIT/0.5 ML SYRINGE SQ SCH (15:15)
[2021-07-10] MEDS: ONDANSETRON 4 MG/2 ML VIAL IVP PRN (15:25)
[2021-07-11] MEDS: HEPARIN SODIUM,PORCINE/PF 5,000 UNIT/0.5 ML SYRINGE SQ SCH ×2 (00:21→08:13)
[2021-07-11 00:42] VITALS: RESP 16
[2021-07-11] MEDS: ONDANSETRON 4 MG/2 ML VIAL IVP PRN (03:35)
[2021-07-11] MEDS: KETOROLAC 15 MG/ML 1 ML VIAL IVP SCH ×2 (03:36→09:18)
[2021-07-11] MEDS: D5-0.45% NACL WITH KCL 20MEQ/L 1,000 ML IV SCH (04:28)
[2021-07-11] MEDS ORDERED: PANTOPRAZOLE 40 MG TABLET PO SCH (07:30)
[2021-07-11 10:19] VITALS: BP 121/74; PULSE 82; TEMP 98.6
--- NOTE | 2021-07-11 10:25 | P.PN ---
Subjective Progress Note Date: 07/11/21 The patient is in her first postoperative day from a hysterectomy and a sacral colpopexy by and stephen. She did well overnight. Her pain is minimal. Her urine is clear. I will discontinue the Toth. If she voids well she can be discharged home from a urologic standpoint. She should see in one week. She can take Tylenol or Motrin for pain. Postoperative instructions have been given from a urologic standpoint. Condition is good. Objective - Vital Signs Vital signs: Vital Signs Temp 98.6 F 07/11/21 08:00 Pulse 82 07/11/21 08:00 Resp 16 07/11/21 08:00 BP 121/74 07/11/21 08:00 Pulse Ox 98 07/11/21 04:00 Intake & Output 07/10/21 07/11/21 07/11/21 18:59 06:59 18:59 Intake Total 1700 Output Total 550 400 225 Balance 1150 -400 -225 Weight 88.2 kg Intake: IV 1700 Output: Urine 500 400 225 Uretheral (Toth) 250 225 Estimated Blood Loss 50 Other: Voiding Method Indwelling Catheter
--- NOTE | 2021-07-11 11:28 | P.DS ---
Providers Date of admission: 07/11/21 07:50 Expected date of discharge: 07/11/21 Attending physician: Williams Hansen Primary care physician: Rex Osborne [facility] Course: This is a 65-year-old female who underwent a robotic total hysterectomy with bilateral salpingo-oophorectomy by Dr. Hansen and a robotic sacral colpopexy by Dr. Pace on 07/10/2021. Postoperatively she has done well. She is urinating with slow post void residuals. Bleeding has been none. Pain is well-controlled with Toradol. She is passing some flatus but no bowel movement yet. Vital signs are stable. Abdomen is soft with positive bowel sounds 4. Incisions are clean dry and intact. Extremities show negative Homans. Impression is status post robotic total hysterectomy with BSO and robotic sacral colpopexy, postoperative day #1. Plan is to discharge home today. Routine postoperative instructions are given. She is advised to follow up with Dr. Hansen in approximately 1-2 weeks and also to follow up with Dr. pace as scheduled. She is advised to call the office if she has any further questions or concerns prior to her postoperative appointments. She is advised to take ibuprofen or Tylenol as needed for pain. Procedures: Robotic total laparoscopic hysterectomy with bilateral salpingo-oophorectomy by Dr. Hansen on 07/10/[address] pace on 07/10/2021 Patient Condition at Discharge: Stable Plan - Discharge Summary Discharge Rx Participant: Yes New Discharge Prescriptions: No Action Esomeprazole Magnesium [NexIUM] 40 mg PO DAILY Discharge Medication List Esomeprazole Magnesium [NexIUM] 40 mg PO DAILY 04/18/17 [History] Follow up Appointment(s)/Referral(s): Edouard Pace MD [STAFF PHYSICIAN] - 1 Week Williams Hansen DO [Doctor of Osteopathic Medicine] - 1 Week Activity/Diet/Wound Care/Special Instructions: Activity as tolerated. No heavy lifting. May shower, but no tub baths. No intercourse. Discharge Disposition: HOME SELF-CARE
== END 2021-07-11 11:50 | disposition home or self-care (01) ==
LOC: OR 05:39 → 4FBP 11:23 → OR 07-11 07:50 → 4FBP 07-11 07:50
PROVIDERS: ADMIT Obstetrics & Gynecology; ATTEND Obstetrics & Gynecology
DX: N81.2 Incomplete uterovaginal prolapse (principal); N81.10 Cystocele, unspecified; K22.70 Barrett's esophagus without dysplasia; Z80.0 Family history of malignant neoplasm of digestive organs; Z82.49 Family history of ischemic heart disease and other diseases of the circulatory system; Z87.891 Personal history of nicotine dependence
CPT/HCPCS: 57425; 58571; S2900; 86850; 86900; 86901; 88305

== ENCOUNTER 2023-07-28 18:58 | Observation (INO) | payer MEDICARE, OTHER ==
[2023-07-28 19:11] VITALS: TEMP 97.5
[2023-07-28] MEDS ORDERED: SODIUM CHLORIDE 0.9% 1,000 ML IV STA (20:27)
[2023-07-28] MEDS ORDERED: ONDANSETRON 4 MG/2 ML VIAL IVP STA (20:27)
--- NOTE | 2023-07-28 20:49 | ED ---
General Adult HPI - General Chief complaint: Upper Respiratory Infection Stated complaint: back pain chest pain throwing up since 10pm 07/27 Time Seen by Provider: 07/28/23 20:04 Source: patient, RN notes reviewed Mode of arrival: ambulatory Limitations: no limitations - History of Present Illness Initial comments: 67-year-old female presents emergency Department with chief complaint of nausea and vomiting x 2 days. She also reports right flank pain that started today without radiation. Denies any aggravating or alleviating factors. Patient admits to substernal chest discomfort without shortness of breath. She states that she feels this is separate from the vomiting. She states the pain does not radiate. - Related Data Home Medications Medication Instructions Recorded Confirmed Esomeprazole Magnesium [NexIUM] 40 mg PO DAILY 04/18/17 07/10/21 Allergies Allergy/AdvReac Type Severity Reaction Status Date / Time No Known Allergies Allergy Verified 07/28/23 19:11 Review of Systems ROS Statement: Those systems with pertinent positive or pertinent negative responses have been documented in the HPI. ROS Other: All systems not noted in ROS Statement are negative. Past Medical History Past Medical History: GERD/Reflux, Osteoarthritis (OA) Additional Past Medical History / Comment(s): HIATAL HERNIA, FALCON'S ESOPHAGUS History of Any Multi-Drug Resistant Organisms: None Reported Past Surgical History: Section, Hernia Repair, Orthopedic Surgery Additional Past Surgical History / Comment(s): EGD, radiofrequency ablation for acid reflux, LT KNEE SX Past Anesthesia/Blood Transfusion Reactions: No Reported Reaction, Motion Sic kness Additional Past Anesthesia/Blood Transfusion Reaction / Comment(s): SICK IN CAR FROM EXHAUST FUMES ONLY Past Psychological History: No Psychological Hx Reported Smoking Status: Former smoker Past Alcohol Use History: Rare Past Drug Use History: None Reported - Past Family History Mother Family Medical History: Cancer Additional Family Medical History / Comment(s): stomach cancer Father Family Medical History: Congestive Heart Failure (CHF) General Exam Limitations: no limitations General appearance: alert, in no apparent distress Head exam: Present: atraumatic, normocephalic, normal inspection Eye exam: Present: normal appearance, PERRL, EOMI. Absent: scleral icterus, conjunctival injection, periorbital swelling ENT exam: Present: normal exam, mucous membranes moist Neck exam: Present: normal inspection. Absent: tenderness, meningismus, lymphadenopathy Respiratory exam: Present: normal lung sounds bilaterally. Absent: respiratory distress, wheezes, rales, rhonchi, stridor Cardiovascular Exam: Present: regular rate, normal rhythm, normal heart sounds. Absent: systolic murmur, diastolic murmur, rubs, gallop, clicks GI/Abdominal exam: Present: soft, normal bowel sounds. Absent: distended, tenderness, guarding, rebound, rigid Extremities exam: Present: normal inspection, full ROM, normal capillary refill. Absent: tenderness, pedal edema, joint swelling, calf tenderness Back exam: Present: normal inspection Neurological exam: Present: alert, oriented X3 Psychiatric exam: Present: normal affect, normal mood Skin exam: Present: warm, dry, intact, normal color. Absent: rash Course Vital Signs 07/28/23 07/28/23 07/28/23 19:07 21:10 22:16 Temperature 97.5 F L Pulse Rate 94 89 Respiratory 18 18 Rate Blood Pressure 142/84 145/85 138/87 O2 Sat by Pulse 98 98 Oximetry Medical Decision Making - Medical Decision Making Was pt. sent in by a medical professional or institution (, PA, MUSIC COPYIST, urgent care, hospital, or penitentiary...) When possible be specific @ -No Did you speak to anyone other than the patient for history (EMS, parent, family, police, friend...)? What history was obtained from this source @ -No Did you review nursing and triage notes (agree or disagree)? Why? @ -I reviewed and agree with nursing and triage notes Were old charts reviewed (outside hosp., previous admission, EMS record, old EKG, old radiological studies, urgent care reports/EKG's, penitentiary records)? Report findings @ -No old charts were reviewed Differential Diagnosis (chest pain, altered mental status, abdominal pain women, abdominal pain men, vaginal bleeding, weakness, fever, dyspnea, syncope, headache, dizziness, GI bleed, back pain, seizure, CVA, palpatations, mental health, musculoskeletal)? @ -Differential Chest Pain: Stable Angina, Unstable Angina, STEMI, NSTEMI Aortic Dissection, Pneumothorax, Musculoskeletal, Esophageal Spasm GERD, Cholecystitis, Pancreatitis, Zoster, this is not meant to be an all-inclusive list. EKG interpreted by me (3pts min.). @ -EKG at 1914 shows sinus rhythm rate 98, NM 146] X-rays interpreted by me (1pt min.). @ -Chest XR shows no evidence of acute process CT interpreted by me (1pt min.). @ -None done U/S interpreted by me (1pt. min.). @ -None done What testing was considered but not performed or refused? (CT, X-rays, U/S, labs)? Why? @ -None What meds were considered but not given or refused? Why? @ -None Did you discuss the management of the patient with other professionals (professionals i.e. DrYoel, PA, MUSIC COPYIST, lab, RT, psych nurse, marriage and family social worker, welder and fitter, teacher, cavalry officer, case managers)? Give summary @ -Case discussed with Dr. Osborne who is accepting of the admission Was smoking cessation discussed for >3mins.? @ -No Was critical care preformed (if so, how long)? @ -No Were there social determinants of health that impacted care today? How? (Homelessness, low income, unemployed, alcoholism, drug addiction, transportation, low edu. Level, literacy, decrease access to med. care, correction, rehab)? @ -No Was there de-escalation of care discussed even if they declined (Discuss DNR or withdrawal of care, Hospice)? DNR status @ -No What co-morbidities impacted this encounter? (DM, HTN, Smoking, COPD, CAD, Cancer, CVA, ARF, Chemo, Hep., AIDS, mental health diagnosis, sleep apnea, morbid obesity)? @ -None Was patient admitted / discharged? Hospital course, mention meds given and route, prescriptions, significant lab abnormalities, going to OR and other pertinent info. @ -admitted. Patient presented to the emergency department for chief complaint of substernal chest discomfort, nausea, vomiting with right sided flank pain x1 day. EKG shows sinus rhythm rate 98. Chest XR shows no evidence of acute process. CBC obtained and within normal limits; CMP obtained which show sodium 138, potassium 3.9; troponin 0.035 repeat troponin .029; UA shows trace protein, 1+ ketones; negative for flu, covid, RSV. Patient given zofran and reglan and continues to have nausea. Patient given toradol for pain. Patient will be admitted for serial trops and cardiology consult. Case discussed with Dr. Osborne who is accepting of the admission. Patient stable at time of admission. Case d iscussed with my attending, Undiagnosed new problem with uncertain prognosis? @ -No Drug Therapy requiring intensive monitoring for toxicity (Heparin, Nitro, Insulin, Cardizem)? @ -No Were any procedures done? @ -No Diagnosis/symptom? @ -chest pain Acute, or Chronic, or Acute on Chronic? @ -acute Uncomplicated (without systemic symptoms) or Complicated (systemic symptoms)? @ -uncomplicated Side effects of treatment? @ -No Exacerbation, Progression, or Severe Exacerbation? @ -No Poses a threat to life or bodily function? How? (Chest pain, [place], [place], pneumonia, PE, COPD, DKA, ARF, appy, cholecystitis, CVA, Diverticulitis, Homicidal, Suicidal, threat to staff... and all critical care pts) @ -chest pain Diagnosis/symptom? @ -intractable nausea0 Acute, or Chronic, or Acute on Chronic? @ -acute Uncomplicated (without systemic symptoms) or Complicated (systemic symptoms)? @ -uncomplicated Side effects of treatment? @ -none Exacerbation, Progression, or Severe Exacerbation] @ -no Poses a threat to life or bodily function? @ -no - Lab Data Result diagrams: 07/28/23 20:27 07/28/23 20:27 Lab Results 07/28/23 07/28/23 07/28/23 Range/Units 19:12 20:27 20:27 WBC 5.3 (3.8-10.6) k/uL RBC 4.64 (3.80-5.40) m/uL Hgb 13.1 (11.4-16.0) gm/dL Hct 39.6 (34.0-46.0) % MCV 85.4 (80.0-100.0) fL MCH 28.2 (25.0-35.0) pg MCHC 33.0 (31.0-37.0) g/dL RDW 13.5 (11.5-15.5) % Plt Count 306 (150-450) k/uL MPV 7.2 Neutrophils % 82 % Lymphocytes % 12 % Monocytes % 5 % Eosinophils % 0 % Basophils % 0 % Neutrophils # 4.3 (1.3-7.7) k/uL Lymphocytes # 0.6 L (1.0-4.8) k/uL Monocytes # 0.3 (0-1.0) k/uL Eosinophils # 0.0 (0-0.7) k/uL Basophils # 0.0 (0-0.2) k/uL PT 10.4 (9.0-12.0) sec INR 1.0 (<1.2) APTT 22.5 (22.0-30.0) sec Sodium (137-145) mmol/L Potassium (3.5-5.1) mmol/L Chloride (98-107) mmol/L Carbon Dioxide (22-30) mmol/L Anion Gap mmol/L BUN (7-17) mg/dL Creatinine (0.52-1.04) mg/dL Est GFR (CKD-EPI)AfAm (>60 ml/min/1.73 sqM) Est GFR (CKD-EPI)NonAf (>60 ml/min/1.73 sqM) Glucose (74-99) mg/dL Calcium (8.4-10.2) mg/dL Magnesium (1.6-2.3) mg/dL Total Bilirubin (0.2-1.3) mg/dL AST (14-36) U/L ALT (4-34) U/L Alkaline Phosphatase (38-126) U/L Troponin I (0.000-0.034) ng/mL Total Protein (6.3-8.2) g/dL Albumin (3.5-5.0) g/dL Amylase (30-110) U/L Lipase (23-300) U/L Urine Color Urine Appearance (Clear) Urine pH (5.0-8.0) Ur Specific Brohard (1.001-1.035) Urine Protein (Negative) Urine Glucose (UA) (Negative) Urine Ketones (Negative) Urine Blood (Negative) Urine Nitrite (Negative) Urine Bilirubin (Negative) Urine Urobilinogen (<2.0) mg/dL Ur Leukocyte Esterase (Negative) Influenza Type A (PCR) Not Detected (Not Detectd) Influenza Type B (PCR) Not Detected (Not Detectd) RSV (PCR) Not Detected (Not Detectd) SARS-CoV-2 (PCR) Not Detected (Not Detectd) 07/28/23 07/28/23 07/28/23 Range/Units 20:27 20:27 20:55 WBC (3.8-10.6) k/uL RBC (3.80-5.40) m/uL Hgb (11.4-16.0) gm/dL Hct (34.0-46.0) % MCV (80.0-100.0) fL MCH (25.0-35.0) pg MCHC (31.0-37.0) g/dL RDW (11.5-15.5) % Plt Count (150-450) k/uL MPV Neutrophils % % Lymphocytes % % Monocytes % % Eosinophils % % Basophils % % Neutrophils # (1.3-7.7) k/uL Lymphocytes # (1.0-4.8) k/uL Monocytes # (0-1.0) k/uL Eosinophils # (0-0.7) k/uL Basophils # (0-0.2) k/uL PT (9.0-12.0) sec INR (<1.2) APTT (22.0-30.0) sec Sodium 138 (137-145) mmol/L Potassium 3.9 (3.5-5.1) mmol/L Chloride 102 (98-107) mmol/L Carbon Dioxide 24 (22-30) mmol/L Anion Gap 12 mmol/L BUN 17 (7-17) mg/dL Creatinine 0.64 (0.52-1.04) mg/dL Est GFR (CKD-EPI)AfAm >90 (>60 ml/min/1.73 sqM) Est GFR (CKD-EPI)NonAf >90 (>60 ml/min/1.73 sqM) Glucose 166 H (74-99) mg/dL Calcium 10.8 H (8.4-10.2) mg/dL Magnesium 1.8 (1.6-2.3) mg/dL Total Bilirubin 0.7 (0.2-1.3) mg/dL AST 28 (14-36) U/L ALT 21 (4-34) U/L Alkaline Phosphatase 144 H (38-126) U/L Troponin I 0.035 H* (0.000-0.034) ng/mL Total Protein 8.2 (6.3-8.2) g/dL Albumin 4.4 (3.5-5.0) g/dL Amylase 61 (30-110) U/L Lipase 47 (23-300) U/L Urine Color Yellow Urine Appearance Clear (Clear) Urine pH 5.5 (5.0-8.0) Ur Specific Brohard 1.022 (1.001-1.035) Urine Protein Trace H (Negative) Urine Glucose (UA) Negative (Negative) Urine Ketones 1+ H (Negative) Urine Blood Negative (Negative) Urine Nitrite Negative (Negative) Urine Bilirubin Negative (Negative) Urine Urobilinogen <2.0 (<2.0) mg/dL Ur Leukocyte Esterase Negative (Negative) Influenza Type A (PCR) (Not Detectd) Influenza Type B (PCR) (Not Detectd) RSV (PCR) (Not Detectd) SARS-CoV-2 (PCR) (Not Detectd) 07/28/23 Range/Units 22:26 WBC (3.8-10.6) k/uL RBC (3.80-5.40) m/uL Hgb (11.4-16.0) gm/dL Hct (34.0-46.0) % MCV (80.0-100.0) fL MCH (25.0-35.0) pg MCHC (31.0-37.0) g/dL RDW (11.5-15.5) % Plt Count (150-450) k/uL MPV Neutrophils % % Lymphocytes % % Monocytes % % Eosinophils % % Basophils % % Neutrophils # (1.3-7.7) k/uL Lymphocytes # (1.0-4.8) k/uL Monocytes # (0-1.0) k/uL Eosinophils # (0-0.7) k/uL Basophils # (0-0.2) k/uL PT (9.0-12.0) sec INR (<1.2) APTT (22.0-30.0) sec Sodium (137-145) mmol/L Potassium (3.5-5.1) mmol/L Chloride (98-107) mmol/L Carbon Dioxide (22-30) mmol/L Anion Gap mmol/L BUN (7-17) mg/dL Creatinine (0.52-1.04) mg/dL Est GFR (CKD-EPI)AfAm (>60 ml/min/1.73 sqM) Est GFR (CKD-EPI)NonAf (>60 ml/min/1.73 sqM) Glucose (74-99) mg/dL Calcium (8.4-10.2) mg/dL Magnesium (1.6-2.3) mg/dL Total Bilirubin (0.2-1.3) mg/dL AST (14-36) U/L ALT (4-34) U/L Alkaline Phosphatase (38-126) U/L Troponin I 0.029 (0.000-0.034) ng/mL Total Protein (6.3-8.2) g/dL Albumin (3.5-5.0) g/dL Amylase (30-110) U/L Lipase (23-300) U/L Urine Color Urine Appearance (Clear) Urine pH (5.0-8.0) Ur Specific Brohard (1.001-1.035) Urine Protein (Negative) Urine Glucose (UA) (Negative) Urine Ketones (Negative) Urine Blood (Negative) Urine Nitrite (Negative) Urine Bilirubin (Negative) Urine Urobilinogen (<2.0) mg/dL Ur Leukocyte Esterase (Negative) Influenza Type A (PCR) (Not Detectd) Influenza Type B (PCR) (Not Detectd) RSV (PCR) (Not Detectd) SARS-CoV-2 (PCR) (Not Detectd) Disposition Clinical Impression: Chest pain Disposition: ADMITTED IP TO THIS HOSP Condition: Stable Is patient prescribed a controlled substance at d/c from ED?: No Referrals: Rex Osborne MD [Primary Care Provider] - 1-2 days
[2023-07-28 20:57] LABS: Basophils % (A) 0 %; Eosinophils % (A) 0 %; HCT 39.6 % (34.0-46.0); HGB 13.1 gm/dL (11.4-16.0); Lymphocytes # (A) 0.6 k/uL (1.0-4.8); Lymphocytes % (A) 12 %; MCH 28.2 pg (25.0-35.0); MCV 85.4 fL (80.0-100.0); Mean Platelet Volume 7.2; Monocytes # (A) 0.3 k/uL (0-1.0); Monocytes % (A) 5 %; Neutrophils # (A) 4.3 k/uL (1.3-7.7); Neutrophils % (A) 82 %; Platelet Count 306 k/uL (150-450); RBC 4.64 m/uL (3.80-5.40); RDW 13.5 % (11.5-15.5); WBC 5.3 k/uL (3.8-10.6)
[2023-07-28] MEDS ORDERED: KETOROLAC 15 MG/ML 1 ML VIAL IVP STA (20:57)
[2023-07-28 21:04] LABS: Partial Thromboplastin Time 22.5 sec (22.0-30.0); Prothrombin Time 10.4 sec (9.0-12.0)
[2023-07-28 21:07] LABS: ALT 21 U/L (4-34); AST 28 U/L (14-36); African American GFR (CKD) >90 (>60 ml/min/1.73 sqM); Albumin 4.4 g/dL (3.5-5.0); Alkaline Phosphatase 144 U/L (38-126); Amylase 61 U/L (30-110); Anion Gap 12 mmol/L; Blood Urea Nitrogen 17 mg/dL (7-17); Calcium 10.8 mg/dL (8.4-10.2); Carbon Dioxide 24 mmol/L (22-30); Chloride 102 mmol/L (98-107); Glucose 166 mg/dL (74-99); Lipase 47 U/L (23-300); Magnesium 1.8 mg/dL (1.6-2.3); Non-African American GFR(CKD) >90 (>60 ml/min/1.73 sqM); Potassium 3.9 mmol/L (3.5-5.1); Sodium 138 mmol/L (137-145); Total Bilirubin 0.7 mg/dL (0.2-1.3); Total Protein 8.2 g/dL (6.3-8.2)
--- NOTE | 2023-07-28 21:12 | XR ---
EXAMINATION TYPE: XR chest 2V DATE OF EXAM: 07/28/2023 8:53 PM CLINICAL INDICATION:Female, 67 years old with history of Chest Pain; PH[facility] COMPARISON: None TECHNIQUE: XR chest 2V Frontal and lateral views of the chest. FINDINGS: Lungs/Pleura: There is no evidence of pleural effusion, focal consolidation, or pneumothorax. Pulmonary vascularity: Unremarkable. Heart/mediastinum: Cardiomediastinal silhouette is enlarged and stable. Musculoskeletal: No acute osseous pathology. IMPRESSION: No acute cardiopulmonary disease/process.
[2023-07-28 21:40] LABS: Appearance,Urine Clear (Clear); Bilirubin,Urine Negative (Negative); Blood,Urine Negative (Negative); Color,Urine Yellow; Glucose,Urine (UA) Negative (Negative); Ketones,Urine 1+ (Negative); Leukocyte Esterase,Urine Negative (Negative); Nitrite,Urine Negative (Negative); PH, Urine 5.5 (5.0-8.0); Protein,Urine Trace (Negative); Specific Gravity,Urine 1.022 (1.001-1.035); Urobilinogen,Urine <2.0 mg/dL (<2.0)
[2023-07-28] MEDS ORDERED: METOCLOPRAMIDE 5 MG/ML 2 ML VIAL IVP STA (21:56)
--- NOTE | 2023-07-28 23:26 | CT ---
EXAM: CT Abdomen and Pelvis With Intravenous Contrast CLINICAL HISTORY: ITS.REASON CT Reason: abd pain TECHNIQUE: Axial computed tomography images of the abdomen and pelvis with intravenous contrast. CTDI is 26.1 mGy and DLP is 1330 mGy-cm. This CT exam was performed using one or more of the following dose reduction techniques: automated exposure control, adjustment of the mA and/or kV according to patient size, and/or use of iterative reconstruction technique. COMPARISON: No relevant prior studies available. FINDINGS: There is a small hiatal hernia with fluid-filled distal esophagus suggesting reflux. There is cholelithiasis without cholecystitis or biliary dilatation. Liver, spleen, pancreas, and adrenal glands are unremarkable. Subcentimeter cortical hypodensities within the left kidney statistically represent cysts but are too small to characterize. Kidneys enhance symmetrically. There is no hydronephrosis. Aorta is normal in caliber. There is no lymphadenopathy. There is no free fluid or free air. Appendix is normal. There is diverticulosis without diverticulitis. There is no bowel obstruction or inflammation. Uterus is surgically absent. Urinary bladder is unremarkable. There are degenerative changes of the lumbar spine. There are no acute osseous findings. A small fat-containing umbilical hernia is observed. IMPRESSION: 1. No acute intra-abdominal findings. 2. Small hiatal hernia with fluid in the distal esophagus suggesting reflux. 3. Diverticulosis without diverticulitis. 4. Cholelithiasis without acute cholecystitis.
[2023-07-29] MEDS ORDERED: MORPHINE SULFATE 4 MG/ML SYRINGE IVP STA (00:09)
[2023-07-29] MEDS ORDERED: MORPHINE SULFATE 4 MG/ML SYRINGE IV PRN (00:18)
[2023-07-29] MEDS ORDERED: PROCHLORPERAZINE 5 MG TAB PO PRN (00:18)
[2023-07-29] MEDS ORDERED: ONDANSETRON 4 MG/2 ML VIAL IVP PRN (00:18)
[2023-07-29] MEDS ORDERED: KETOROLAC 15 MG/ML 1 ML VIAL IVP PRN (00:18)
[2023-07-29] MEDS ORDERED: ACETAMINOPHEN TAB 325 MG TAB PO PRN (00:18)
[2023-07-29] MEDS ORDERED: IBUPROFEN 400 MG TAB PO PRN (00:18)
[2023-07-29] MEDS ORDERED: NALOXONE 0.4 MG/ML 1 ML VIAL IV PRN (00:18)
[2023-07-29] MEDS ORDERED: MELATONIN 3 MG TABLET PO PRN (00:18)
[2023-07-29] MEDS ORDERED: SODIUM CHLORIDE 0.9% 1,000 ML IV SCH (00:30)
[2023-07-29 07:04] VITALS: BP 132/85; PULSE 87; RESP 18
--- NOTE | 2023-07-29 08:32 | P.HPIM ---
History of Present Illness H&P Date: 07/29/23 Chief Complaint: Substernal chest pain This is a history of physical 67-year-old white female with known history of acid reflux. She however states that for the past several days she's been having worsening substernal pain. Food isn't provocative. At night becoming worse but she came in with significant nausea and vomiting which was intractable. No diaphoresis no shoulder pain no left arm pain no significant jaw pain stated. However there is significant premature heart disease in the family. Her sister had heart attack at age 53. She is a nonsmoker. Review of Systems Constitutional: Denies chills, Denies fever Eyes: denies blurred vision, denies pain Ears, nose, mouth and throat: Denies headache, Denies sore throat Cardiovascular: Reports as per HPI, Reports chest pain Respiratory: Denies cough Gastrointestinal: Denies abdominal pain, Denies diarrhea, Denies nausea, Denies vomiting Genitourinary: Denies dysuria, Denies hematuria Musculoskeletal: Denies myalgias Past Medical History Past Medical History: GERD/Reflux, Osteoarthritis (OA) Additional Past Medical History / Comment(s): HIATAL HERNIA, FALCON'S ESOPHAGUS, prolapsed bladder History of Any Multi-Drug Resistant Organisms: None Reported Past Surgical History: Section, Hernia Repair, Hysterectomy, Orthopedic Surgery Additional Past Surgical History / Comment(s): EGD, radiofrequency ablation for acid reflux, LT KNEE SX, Past Anesthesia/Blood Transfusion Reactions: No Reported Reaction, Motion Sickness Additional Past Anesthesia/Blood Transfusion Reaction / Comment(s): SICK IN CAR FROM EXHAUST FUMES ONLY Past Psychological History: No Psychological Hx Reported Smoking Status: Former smoker Past Alcohol Use History: Rare Additional Past Alcohol Use History / Comment(s): smoked 15 years 1ppd quit 1996 Past Drug Use History: None Reported - Past Family History Mother Family Medical History: Cancer Additional Family Medical History / Comment(s): stomach cancer Father Family Medical History: Congestive Heart Failure (CHF) Medications and Allergies Home Medications Medication Instructions Recorded Confirmed Type Esomeprazole Magnesium [NexIUM] 40 mg PO DAILY 04/18/17 07/10/21 History Allergies Allergy/AdvReac Type Severity Reaction Status Date / Time No Known Allergies Allergy Verified 07/28/23 19:11 Physical Exam Vitals: Vital Signs Temp Pulse Pulse Resp BP BP Pulse Ox 07/29/23 06:30 87 18 132/85 98 07/29/23 04:46 98 16 138/82 98 07/28/23 23:30 97 18 138/87 97 07/28/23 22:16 138/87 07/28/23 21:10 89 18 145/85 98 07/28/23 19:07 97.5 F L 94 18 142/84 98 Intake and Output 07/28/23 07/29/23 07/29/23 22:59 06:59 14:59 Other: Weight 86.183 kg 86.183 kg - Constitutional General appearance: cooperative, no acute distress - EENT Eyes: EOMI - Neck Neck: no lymphadenopathy - Respiratory Respiratory: bilateral: CTA - Cardiovascular Rhythm: regular Heart sounds: normal: S1, S2 Abnormal Heart Sounds: no S3 Gallop - Gastrointestinal General gastrointestinal: soft, no tenderness - Integumentary Integumentary: no cellulitis - Psychiatric Psychiatric: A&O x's 3, appropriate affect, intact judgment & insight Results CBC & Chem 7: 07/28/23 20:27 07/28/23 20:27 Labs: Abnormal Lab Results - Last 24 Hours (Table) 07/28/23 07/28/23 07/28/23 Range/Units 20:27 20:27 20:27 Lymphocytes # 0.6 L (1.0-4.8) k/uL Glucose 166 H (74-99) mg/dL Calcium 10.8 H (8.4-10.2) mg/dL Alkaline Phosphatase 144 H (38-126) U/L Troponin I 0.035 H* (0.000-0.034) ng/mL Urine Protein (Negative) Urine Ketones (Negative) 07/28/23 07/29/23 Range/Units 20:55 04:44 Lymphocytes # (1.0-4.8) k/uL Glucose (74-99) mg/dL Calcium (8.4-10.2) mg/dL Alkaline Phosphatase (38-126) U/L Troponin I 0.036 H* (0.000-0.034) ng/mL Urine Protein Trace H (Negative) Urine Ketones 1+ H (Negative) Thrombosis Risk Factor Assmnt - Choose All That Apply Any of the Below Risk Factors Present?: Yes Each Factor Represents 1 point: Obesity (BMI >25), Swollen legs (current) Other Risk Factors: Yes Each Risk Factor Represents 2 Points: Age 61-74 years Other congenital or acquired thrombophilia - If yes, enter type in comment: No Thrombosis Risk Factor Assessment Total Risk Factor Score: 4 Thrombosis Risk Factor Assessment Level: Moderate Risk Assessment and Plan (1) Chest pain Current Visit: Yes Status: Acute Code(s): R07.9 - CHEST PAIN, UNSPECIFIED SNOMED Code(s): 28658958 (2) GERD (gastroesophageal reflux disease) Current Visit: No Status: Acute Code(s): K21.9 - GASTRO-ESOPHAGEAL REFLUX DISEASE WITHOUT ESOPHAGITIS SNOMED Code(s): 974540681 Plan: Rule out GA. ACS elements. Reflux esophagitis. Add Protonix. Appreciate cardiology input. Prognosis is guarded. See orders otherwise. Time with Patient: Greater than 30
[2023-07-29] MEDS ORDERED: PANTOPRAZOLE 40 MG/10 ML VIAL IVP SCH (09:00)
[2023-07-29] MEDS ORDERED: FAMOTIDINE 20 MG/2 ML VIAL IV SCH (09:00)
--- NOTE | 2023-07-29 13:01 | P.CRDCN ---
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 We have been asked to evaluate the patient for chest pain. She has a past medical history of GERD, hiatal hernia, Falcon's esophagus, remote history of tobacco use, no alcohol use. Patient gives history that on Tuesday after dinner she had about 4 bites of ice cream and then she woke up with acid reflux and later started vomiting. All day she was having vomiting and severe gastric reflux. She took Pepto-Bismol and vomited this. She came into the hospital for further evaluation. She feels that everything is related to the gastric reflux. She does have a plan to recontact Dr. Stanley is he did hiatal hernia surgery 4-5 years ago. She also has history of ablation done for the Falcon's esophagus about 7 years ago. Patient has had nothing to be yesterday and feels weak. No tenderness to chest wall. Patient states that she is usually active and when she is active she does not have any chest pain. She is concerned about her heart because her sister at age 53, myocardial infarction and brother at age 60 from a myocardial infarction. EKG sinus rhythm with no acute ST changes. Chest x-ray: No acute abnormality CAT scan of the abdomen and pelvis with contrast revealed no acute intra- abdominal findings. Small bilateral hernia. Diverticulosis without diverticulitis. Cholelithiasis without acute cholecystitis. CBC unremarkable. Electrolytes and renal function normal. Creatinine 0.64. Troponin 0.035, 0.0-9 and 0.036. Blood sugar 166. Magnesium 1.8. Alkaline phosphatase 144 otherwise liver function tests are normal. Influenza a, influenza B, RSV and Covid 19 not detected. Home cardiac medications: None Review Of Systems: At the time of my evaluation: Constitutional: No fever, no chills. No weakness, fatigue or lethargy. EENT: No headache. No dizziness. Lungs: No shortness of breath, cough, no sputum production. No wheezing. Cardiovascular: + chest pain, no lower extremity edema. No palpitations. No paroxysmal nocturnal dyspnea. No orthopnea. No lightheadedness or dizziness. No syncopal episodes. Abdominal: No abdominal pain. + nausea, + vomiting. No diarrhea. No constipation. No bloody or tarry stools. Positive gastric reflux symptoms Musculoskeletal: No myalgias. No muscle weakness, no frequent falls. Integumentary: No wounds. No rash. No unusual bruising. Neurologic: No aphasia. No facial droop. No change in mentation. Physical examination: Gen: This is a 67-year-old obese female. She is resting bed and appears to be comfortable and in no acute distress VS: reviewed HEENT: Head is atraumatic, normocephalic. Pupils equal, round. Sclerae is anicteric. NECK: Supple. No JVD. . LUNGS: Clear to auscultation. No wheezes or rhonchi. No intercostal retrac tions. HEART: Regular rate and rhythm. No murmur. ABDOMEN: Soft No tenderness. EXTREMITIES: No pedal edema. No calf tenderness. NEUROLOGICAL: Patient is awake, alert and oriented x3. Assessment: Chest pain, atypical, acute coronary syndrome ruled out Gastroesophageal reflux disease Hiatal hernia Falcon's esophagus Remote tobacco use Family history of premature coronary artery disease Plan: Obtain 2-D echocardiogram and Doppler study to assess cardiac structure and function Patient is agreeable to come back next week for outpatient exercise stress echocardiogram. Patient is cleared for discharge with plan to follow-up for exercise stress echocardiogram and then follow-up with Dr. Thomas in the office. Nurse practitioner note has been reviewed, I agree with documented findings and plan of care. Patient was seen and examined. Past Medical History Past Medical History: GERD/Reflux, Osteoarthritis (OA) Additional Past Medical History / Comment(s): HIATAL HERNIA, FALCON'S ESOPHAGUS, prolapsed bladder History of Any Multi-Drug Resistant Organisms: None Reported Past Surgical History: Section, Hernia Repair, Hysterectomy, Orthopedic Surgery Additional Past Surgical History / Comment(s): EGD, radiofrequency ablation for acid reflux, LT KNEE SX, Past Anesthesia/Blood Transfusion Reactions: No Reported Reaction, Motion Sickness Additional Past Anesthesia/Blood Transfusion Reaction / Comment(s): SICK IN CAR FROM EXHAUST FUMES ONLY Past Psychological History: No Psychological Hx Reported Smoking Status: Former smoker Past Alcohol Use History: Rare Additional Past Alcohol Use History / Comment(s): smoked 15 years 1ppd quit 1996 Past Drug Use History: None Reported - Past Family History Mother Family Medical History: Cancer Additional Family Medical History / Comment(s): stomach cancer Father Family Medical History: Congestive Heart Failure (CHF) Medications and Allergies Home Medications Medication Instructions Recorded Confirmed Type Calcium Carbonate [Tums] 500 mg PO TID PRN 07/29/23 07/29/23 History Ibuprofen [Motrin Ib] 200 - 400 mg PO Q8H PRN 07/29/23 07/29/23 History Omeprazole Magnesium [PriLOSEC OTC] 40 mg PO DAILY 07/29/23 07/29/23 History Allergies Allergy/AdvReac Type Severity Reaction Status Date / Time No Known Allergies Allergy Verified 07/29/23 12:26 Physical Exam Vitals: Vital Signs Temp Pulse Pulse Resp BP BP Pulse Ox 07/29/23 06:30 87 18 132/85 98 07/29/23 04:46 98 16 138/82 98 07/28/23 23:30 97 18 138/87 97 07/28/23 22:16 138/87 07/28/23 21:10 89 18 145/85 98 07/28/23 19:07 97.5 F L 94 18 142/84 98 Intake and Output 07/28/23 07/29/23 07/29/23 22:59 06:59 14:59 Other: Weight 86.183 kg 86.183 kg Results 07/28/23 20:27 07/28/23 20:27 Cardiac Enzymes 07/28/23 07/28/23 07/28/23 Range/Units 20:27 20:27 22:26 AST 28 (14-36) U/L Troponin I 0.035 H* 0.029 (0.000-0.034) ng/mL 07/29/23 Range/Units 04:44 AST (14-36) U/L Troponin I 0.036 H* (0.000-0.034) ng/mL Coagulation 07/28/23 Range/Units 20:27 PT 10.4 (9.0-12.0) sec APTT 22.5 (22.0-30.0) sec CBC 07/28/23 Range/Units 20:27 WBC 5.3 (3.8-10.6) k/uL RBC 4.64 (3.80-5.40) m/uL Hgb 13.1 (11.4-16.0) gm/dL Hct 39.6 (34.0-46.0) % Plt Count 306 (150-450) k/uL Comprehensive Metabolic Panel 07/28/23 Range/Units 20:27 Sodium 138 (137-145) mmol/L Potassium 3.9 (3.5-5.1) mmol/L Chloride 102 (98-107) mmol/L Carbon Dioxide 24 (22-30) mmol/L BUN 17 (7-17) mg/dL Creatinine 0.64 (0.52-1.04) mg/dL Glucose 166 H (74-99) mg/dL Calcium 10.8 H (8.4-10.2) mg/dL AST 28 (14-36) U/L ALT 21 (4-34) U/L Alkaline Phosphatase 144 H (38-126) U/L Total Protein 8.2 (6.3-8.2) g/dL Albumin 4.4 (3.5-5.0) g/dL Current Medications Generic Name Dose Route Start Last Admin Trade Name Freq PRN Reason Stop Dose Admin Acetaminophen 650 mg 07/29/23 00:18 Acetaminophen Tab 325 Mg Tab PO Q6HR PRN Mild Pain or Fever > 100.5 Famotidine 20 mg 07/29/23 09:00 07/29/23 05:26 Famotidine 20 Mg/2 Ml Vial IV 20 mg DAILY VAN Administration Sodium Chloride 1,000 mls @ 75 mls/hr 07/29/23 00:30 07/29/23 01:33 Saline 0.9% IV 75 mls/hr .[id number] VAN Administration Ibuprofen 400 mg 07/29/23 00:18 Ibuprofen 400 Mg Tab PO Q6HR PRN Mild Pain or Fever > 100.5 Ketorolac Tromethamine 15 mg 07/29/23 00:18 Ketorolac 15 Mg/Ml 1 Ml Vial IVP 08/01/23 00:19 Q6HR PRN Moderate Pain (Scale 4 to 6) Melatonin 3 mg 07/29/23 00:18 Melatonin 3 Mg Tablet PO HS PRN Insomnia Morphine Sulfate 4 mg 07/29/23 00:18 Morphine Sulfate 4 Mg/Ml Syringe IV Q4HR PRN Severe Pain (Scale 7 to 10) Naloxone HCl 0.2 mg 07/29/23 00:18 Naloxone 0.4 Mg/Ml 1 Ml Vial IV Q2M PRN Opioid Reversal Ondansetron HCl 4 mg 07/29/23 00:18 Ondansetron 4 Mg/2 Ml Vial IVP Q8HR PRN Nausea And Vomiting Prochlorperazine Maleate 5 mg 07/29/23 00:18 Prochlorperazine 5 Mg Tab PO Q8HR PRN Nausea And Vomiting Intake and Output 07/28/23 07/29/23 07/29/23 22:59 06:59 14:59 Other: Weight 86.183 kg 86.183 kg 07/28/23 20:27 07/28/23 20:27
--- NOTE | 2023-07-29 13:10 | CA ---
Transthoracic Echo Report Name: Dilma Parr Age: 67 Gender: F : 1955 Exam Date: 07/29/2023 11:01 Exam Location: [facility] Ht (in): 64 Wt (lb): 190 Ordering Physician: Dilma Roque Attending/Referring Phys: [id number], Jude Antisqueak Applier Devyn Gil Procedure CPT: Indications: LVF Cardiac Hx: Technical Quality: Fair Contrast 1: Total Dose (mL): Contrast 2: Total Dose (mL): MEASUREMENTS (Male / Female) Normal Values 2D ECHO LV Diastolic Diameter PLAX 5.0 cm 4.2 - 5.9 / 3.9 - 5.3 cm LV Systolic Diameter PLAX 3.4 cm IVS Diastolic Thickness 1.1 cm 0.6 - 1.0 / 0.6 - 0.9 cm LVPW Diastolic Thickness 1.2 cm 0.6 - 1.0 / 0.6 - 0.9 cm LV Relative Wall Thickness 0.5 RV Internal Dim ED PLAX 2.9 cm LVOT Diameter 2.0 cm Aortic Root Diameter 2.9 cm LA Systolic Diameter LX 3.2 cm 3.0 - 4.0 / 2.7 - 3.8 cm LV Diastolic Volume MOD BP 57.8 cm??? 67 - 155 / 56 - 104 cm??? LV Systolic Volume MOD BP 23.5 cm??? 22 - 58 / 19 - 49 cm??? LV Ejection Fraction MOD BP 59.3 % >= 55 % LV Cardiac Index MOD BP 1436.1 cm???/min???m??? LV Diastolic Volume MOD 4C 52.7 cm??? LV Systolic Volume MOD 4C 19.5 cm??? LV Ejection Fraction MOD 4C 63.0 % LV Cardiac Index MOD 4C 1389.4 cm???/min???m??? LV Diastolic Length 4C 7.0 cm LV Systolic Length 4C 5.7 cm LV Diastolic Volume MOD 2C 63.6 cm??? LV Systolic Volume MOD 2C 28.0 cm??? LV Ejection Fraction MOD 2C 55.9 % LV Cardiac Index MOD 2C 1490.1 cm???/min???m??? LV Diastolic Length 2C 7.0 cm LV Systolic Length 2C 6.0 cm LA Volume 47.1 cm??? 18 - 58 / 22 - 52 cm??? Ascending Aorta Diameter 3.2 cm DOPPLER AV Peak Velocity 134.3 cm/s AV Peak Gradient 7.2 mmHg AV Mean Velocity 98.3 cm/s AV Mean Gradient 4.6 mmHg AV Velocity Time Integral 26.9 cm AI Peak Velocity 368.0 cm/s AI Peak Gradient 54.2 mmHg AI Pressure Half Time 603.8 ms LVOT Peak Velocity 98.5 cm/s LVOT Peak Gradient 3.9 mmHg LVOT Velocity Time Integral 20.0 cm LVOT Stroke Volume 61.5 cm??? LVOT Stroke Volume Index 32.1 ml/m??? LVOT Cardiac Index 2574.6 cm???/min???m??? AV Area Cont Eq vti 2.3 cm??? AV Area Cont Eq pk 2.3 cm??? MV Peak Velocity 115.8 cm/s MV Peak Gradient 5.4 mmHg MV Mean Velocity 59.0 cm/s MV Mean Gradient 1.7 mmHg MV Velocity Time Integral 37.0 cm MR Peak Velocity 522.9 cm/s MR Peak Gradient 109.4 mmHg Mitral E Point Velocity 65.0 cm/s Mitral A Point Velocity 86.2 cm/s Mitral E to A Ratio 0.8 MV Deceleration Time 194.4 ms MV E' Velocity 7.7 cm/s Mitral E to MV E' Ratio 8.4 TR Peak Velocity 228.5 cm/s TR Peak Gradient 20.9 mmHg Right Ventricular Systolic Press 25.9 mmHg PV Peak Velocity 89.2 cm/s PV Peak Gradient 3.2 mmHg FINDINGS Left Ventricle Normal LV size .Left ventricular ejection fraction is estimated at 55-60 %.normal left ventricular wall motion. Mildly increased left ventricular wall thickness. Right Ventricle Normal right ventricular size. Right Atrium Normal right atrial size. Left Atrium Normal left atrial size. Mitral Valve Structurally normal mitral valve. Mild MR. mildly calcified leaflets Aortic Valve Trileaflet aortic valve. Mild to Moderate AI. Tricuspid Valve Structurally normal tricuspid valve. Mild TR. Pulmonic Valve Structurally normal pulmonic valve. No pulmonic regurgitation. Pericardium Normal pericardium. Aorta Normal size aortic root. CONCLUSIONS 1. Normal left ventricle size and systolic function 2. Mild mitral and tricuspid regurgitation with [id number] aortic regurgitation and no evidence of right ventricular systolic hypertension Previewed by: Dr. Parmjit Goodman MD (Electronically Signed) Final Date: 29 July 2023 13:09
== END 2023-07-29 15:16 | disposition home or self-care (01) ==
LOC: EC 18:58 → 6NMEDSUR 07-29 00:22 → 3SCARD 07-29 05:59
PROVIDERS: ADMIT Family Medicine; ATTEND Family Medicine
DX: R07.89 Other chest pain (principal); K21.00 Gastro-esophageal reflux disease with esophagitis, without bleeding; K44.9 Diaphragmatic hernia without obstruction or gangrene; K80.20 Calculus of gallbladder without cholecystitis without obstruction; K57.90 Diverticulosis of intestine, part unspecified, without perforation or abscess without bleeding; K22.70 Barrett's esophagus without dysplasia; M19.90 Unspecified osteoarthritis, unspecified site; N81.10 Cystocele, unspecified; E66.9 Obesity, unspecified; Z68.32 Body mass index [BMI] 32.0-32.9, adult; R22.43 Localized swelling, mass and lump, lower limb, bilateral; Z20.822 Contact with and (suspected) exposure to COVID-19; Z79.899 Other long term (current) drug therapy; Z98.891 History of uterine scar from previous surgery; Z87.891 Personal history of nicotine dependence; Z90.710 Acquired absence of both cervix and uterus; Z98.890 Other specified postprocedural states; Z80.0 Family history of malignant neoplasm of digestive organs; Z82.49 Family history of ischemic heart disease and other diseases of the circulatory system
CPT/HCPCS: 96375 ×3; 96361 ×2; 96374; 99285; 36415; 93005; 93306; 80053; 82150; 83690; 83735; 84484 ×2; 85025; 85610; 85730; 81003; 87636; 71046; 74177; G0378 ×3; J2270; J2765; J2405; J3490; J1885; C9113; Q9967

== ENCOUNTER 2024-05-29 13:17 | Emergency (ER) | payer MEDICARE, OTHER ==
[2024-05-29 13:25] VITALS: BP 153/86; PULSE 81; RESP 16; TEMP 97.5
--- NOTE | 2024-05-29 13:56 | ED ---
Nausea/Vomiting/Diarrhea HPI - General Source: patient, RN notes reviewed Mode of arrival: wheelchair Limitations: no limitations - History of Present Illness MD complaint: nausea, vomiting <Debbie Pisano - Last Filed: 05/29/24 13:54> - General Source: patient, RN notes reviewed, old records reviewed Mode of arrival: wheelchair Limitations: no limitations - History of Present Illness MD complaint: nausea, vomiting -: days(s) Description of Vomiting: food contents, bilious Description of Diarrhea: water Location: diffuse, periumbilical Severity: moderate Severity scale (1-10): 4 Quality: stabbing Consistency: intermittent, colicky Associated Symptoms: loss of appetite, nausea/vomiting <Basil Velasquez - Last Filed: 06/05/24 02:57> - General Chief complaint: Chest Pain Stated complaint: Vomiting Time Seen by Provider: 05/29/24 13:54 - History of Present Illness Initial comments: Quick Note: This is a 68-year-old female who presents to the emergency department for nausea, vomiting, and chest pain. States that a couple of days ago she started feeling generally unwell and since yesterday she has been unable to keep anything down. The persistent vomiting is causing pain up in her chest as well as and she is concerned about a problem with her hiatal hernia. States that she had surgical repair and has mesh. She has diarrhea as well. Denies any fevers/chills or sick contacts. (Debbie Pisano) - Related Data Home Medications Medication Instructions Recorded Confirmed Calcium Carbonate [Tums] 500 mg PO TID PRN 07/29/23 07/29/23 Ibuprofen [Motrin Ib] 200 - 400 mg PO Q8H PRN 07/29/23 07/29/23 Omeprazole Magnesium [PriLOSEC OTC] 40 mg PO DAILY 07/29/23 07/29/23 Previous Rx's Medication Instructions Recorded Cephalexin [Keflex] 500 mg PO Q6HR #28 cap 05/29/24 Ondansetron Odt [Zofran ODT] 4 mg PO Q8HR PRN #30 tab 05/29/24 Allergies Allergy/AdvReac Type Severity Reaction Status Date / Time No Known Allergies Allergy Verified 05/29/24 13:25 Review of Systems ROS Other: All systems not noted in ROS Statement are negative. <Debbie Pisano - Last Filed: 05/29/24 13:54> ROS Other: All systems not noted in ROS Statement are negative. <MeghanvargasrjBasil Sinan - Last Filed: 06/05/24 02:57> ROS Statement: Those systems with pertinent positive or pertinent negative responses have been documented in the HPI. Past Medical History Past Medical History: GERD/Reflux, Osteoarthritis (OA) Additional Past Medical History / Comment(s): HIATAL HERNIA, FALCON'S ESOPHAGUS, prolapsed bladder History of Any Multi-Drug Resistant Organisms: None Reported Past Surgical History: Section, Hernia Repair, Hysterectomy, Orthopedic Surgery Additional Past Surgical History / Comment(s): EGD, radiofrequency ablation for acid reflux, LT KNEE SX, Past Anesthesia/Blood Transfusion Reactions: No Reported Reaction, Motion Sickness Additional Past Anesthesia/Blood Transfusion Reaction / Comment(s): SICK IN CAR FROM EXHAUST FUMES ONLY Past Psychological History: No Psychological Hx Reported Smoking Status: Former smoker Past Alcohol Use History: Rare Past Drug Use History: None Reported - Past Family History Mother Family Medical History: Cancer Additional Family Medical History / Comment(s): stomach cancer Father Family Medical History: Congestive Heart Failure (CHF) <Debbie Pisano - Last Filed: 05/29/24 13:54> General Exam Limitations: no limitations <Debbie Pisano - Last Filed: 05/29/24 13:54> General appearance: alert, in no apparent distress, anxious Head exam: Present: atraumatic, normocephalic, normal inspection Eye exam: Present: normal appearance, PERRL, EOMI. Absent: scleral icterus, conjunctival injection, periorbital swelling ENT exam: Present: normal exam, mucous membranes moist Neck exam: Present: normal inspection. Absent: tenderness, meningismus, lymphadenopathy Respiratory exam: Present: normal lung sounds bilaterally. Absent: respiratory distress, wheezes, rales, rhonchi, stridor Cardiovascular Exam: Present: regular rate, normal rhythm, normal heart sounds. Absent: systolic murmur, diastolic murmur, rubs, gallop, clicks GI/Abdominal exam: Present: soft, normal bowel sounds. Absent: distended, tenderness, guarding, rebound, rigid Extremities exam: Present: normal inspection, full ROM, normal capillary refill. Absent: tenderness, pedal edema, joint swelling, calf tenderness Back exam: Present: normal inspection Neurological exam: Present: alert, oriented X3, CN II-XII intact Psychiatric exam: Present: normal affect, normal mood Skin exam: Present: warm, dry, intact, normal color. Absent: rash <Basil Velasquez - Last Filed: 06/05/24 02:57> - General Exam Comments Initial Comments: Visual Physical Exam Vital signs reviewed General: Well-appearing, nontoxic, no acute distress. Head: Normocephalic, atraumatic Eyes: PERRLA, EOMI ENT: Airway patent Chest: Nonlabored breathing Skin: No visual rash, normal skin tone Neuro: Alert and oriented 3 Musculoskeletal: No gross abnormalities (Debbie Pisano) Course <Basil Velasquez - Last Filed: 06/05/24 02:57> Vital Signs 05/29/24 13:22 Temperature 97.5 F L Pulse Rate 81 Respiratory 16 Rate Blood Pressure 153/86 O2 Sat by Pulse 98 Oximetry - Reevaluation(s) Reevaluation #1: Medical records reviewed (Basil Velasquez) Reevaluation #2: Symptoms unchanged (Basil Velasquez) Reevaluation #3: Patient informed of results and questions answered (Basil Velasquez) Reevaluation #4: Was pt. sent in by a medical professional or institution (, PA, TOY STUFFER, urgent ca re, hospital, or [facility]...) When possible be specific @ -no Did you speak to anyone other than the patient for history (EMS, parent, family, police, friend...)? What history was obtained from this source @ -no Did you review nursing and triage notes (agree or disagree)? Why? @ -agree Are old charts reviewed (outside hosp., previous admission, EMS record, old EKG, old radiological studies, urgent care reports/EKG's, [facility] records)? Report findings @ -yes Differential Diagnosis (chest pain, altered mental status, abdominal pain women, abdominal pain men, vaginal bleeding, weakness, fever, dyspnea, syncope, headache, dizziness, GI bleed, back pain, seizure, CVA, palpatations, mental health, musculoskeletal)? @ -prior EKG interpreted by me (3pts min.). @ -yes X-rays interpreted by me (1pt min.). @ -yes negative for acute disease CT interpreted by me (1pt min.). @ -no U/S interpreted by me (1pt. min.). @ -no What testing was considered but not performed or refused? (CT, X-rays, U/S, labs)? Why? @ -none What meds were considered but not given or refused? Why? @ -none Did you discuss the management of the patient with other professionals (professionals i.e. DrYoel, PA, TOY STUFFER, lab, RT, psych nurse, social insurance administrator, hull sorter, teacher, security officer supervisor, outpatient case manager)? Give summary @ -no Was smoking cessation discussed for >3mins.? @ -no Was critical care preformed (if so, how long)? @ -no Were there social determinants of health that impacted care today? How? (Homel essness, low income, unemployed, alcoholism, drug addiction, transportation, low edu. Level, literacy, decrease access to med. care, retirement, rehab)? @ -none Was there de-escalation of care discussed even if they declined (Discuss DNR or withdrawal of care, Hospice)? DNR status @ -no What co-morbidities impacted this encounter? (DM, HTN, Smoking, COPD, CAD, Cancer, CVA, ARF, Chemo, Hep., AIDS, mental health diagnosis, sleep apnea, morbid obesity)? @ -none Was patient admitted / discharged? Hospital course, mention meds given and route, prescriptions, significant lab abnormalities, going to OR and other pertinent info. @ - 68 female to ER for nausea vomiting diarrhea. Symptoms improved here in the ER no acute findings or abnormalities on lab testing patient feels improved and can be discharged home Discharge Undiagnosed new problem with uncertain prognosis? @ -no Drug Therapy requiring intensive monitoring for toxicity (Heparin, Nitro, Insulin, Cardizem)? @ -no Were any procedures done? @ -no Diagnosis/symptom? @ -nausea vomiting diarrhea and chest pain Acute, or Chronic, or Acute on Chronic? @ -Acute Uncomplicated (without systemic symptoms) or Complicated (systemic symptoms)? @ -Complicated Side effects of treatment? @ -no Exacerbation, Progression, or Severe Exacerbation? @ -exacerbation Poses a threat to life or bodily function? How? (Chest pain, [place], [place], pneumonia, PE, COPD, DKA, ARF, appy, cholecystitis, CVA, Diverticulitis, Homicidal, Suicidal, threat to staff... and all critical care pts) @ -yes chest pain (Basil Velasquez) Reevaluation #5: Differential Abdominal Pain Women: Appendicitis, Cholecystitis, diverticulosis, ischemic bowel, pancreatitis, hepatitis, UTI, gastroenteritis, AAA, incarcerated hernia, bowel obstruction, constipation, inflammatory bowel, hepatitis, peptic ulcer disease, splenic infarction, perforated viscus, vulvitis, ovarian torsion, PID, kidney stone, placenta abruption, this is not meant to be an all-inclusive list (Basil Velasquez) Medical Decision Making <Debbie Pisano - Last Filed: 05/29/24 13:54> - Lab Data Result diagrams: 05/29/24 13:55 05/29/24 13:55 - EKG Data -: EKG Interpreted by Me (EKG is 85 rate, MO 143 QRS 97 QTc 431) - Radiology Data Radiology results: report reviewed (Chest x-ray is negative for acute disease), image reviewed <Basil Velasquez - Last Filed: 06/05/24 02:57> - Medical Decision Making I performed the QuickNote portion of this chart. Signed Debbie Pisano PA-C. (Debbie Pisano) 68 female to ER for nausea vomiting diarrhea. Symptoms improved here in the ER no acute findings or abnormalities on lab testing patient feels improved and can be discharged home (Basil Velasquez) - Lab Data Lab Results 05/29/24 05/29/24 05/29/24 Range/Units 13:55 13:55 13:55 WBC 6.1 (3.8-10.6) k/uL RBC 4.92 (3.80-5.40) m/uL Hgb 13.3 (11.4-16.0) gm/dL Hct 41.4 (34.0-46.0) % MCV 84.2 (80.0-100.0) fL MCH 27.1 (25.0-35.0) pg MCHC 32.2 (31.0-37.0) g/dL RDW 13.1 (11.5-15.5) % Plt Count 266 (150-450) k/uL MPV 7.3 Neutrophils % 90 % Lymphocytes % 6 % Monocytes % 2 % Eosinophils % 1 % Basophils % 0 % Neutrophils # 5.5 (1.3-7.7) k/uL Lymphocytes # 0.4 L (1.0-4.8) k/uL Monocytes # 0.1 (0-1.0) k/uL Eosinophils # 0.0 (0-0.7) k/uL Basophils # 0.0 (0-0.2) k/uL PT 11.0 (10.0-12.5) sec INR 1.0 (<1.2) APTT 23.0 (22.0-30.0) sec Sodium 137 (137-145) mmol/L Potassium 4.1 (3.5-5.1) mmol/L Chloride 105 (98-107) mmol/L Carbon Dioxide 22 (22-30) mmol/L Anion Gap 10 mmol/L BUN 14 (7-17) mg/dL Creatinine 0.61 (0.52-1.04) mg/dL Est GFR (CKD-EPI)AfAm >90 (>60 ml/min/1.73 sqM) Est GFR (CKD-EPI)NonAf >90 (>60 ml/min/1.73 sqM) Glucose 167 H (74-99) mg/dL Calcium 10.4 H (8.4-10.2) mg/dL Magnesium 1.7 (1.6-2.3) mg/dL Total Bilirubin 1.0 (0.2-1.3) mg/dL AST 26 (14-36) U/L ALT 21 (4-34) U/L Alkaline Phosphatase 129 H (38-126) U/L Troponin I (0.000-0.034) ng/mL Total Protein 7.6 (6.3-8.2) g/dL Albumin 4.4 (3.5-5.0) g/dL Amylase 55 (30-110) U/L Lipase 49 (23-300) U/L Urine Color Urine Appearance (Clear) Urine pH (5.0-8.0) Ur Specific [place] (1.001-1.035) Urine Protein (Negative) Urine Glucose (UA) (Negative) Urine Ketones (Negative) Urine Blood (Negative) Urine Nitrite (Negative) Urine Bilirubin (Negative) Urine Urobilinogen (<2.0) mg/dL Ur Leukocyte Esterase (Negative) Urine RBC (0-5) /hpf Urine WBC (0-5) /hpf Ur Squamous Epith Cells (0-4) /hpf Urine Bacteria (None) /hpf Urine Mucus (None) /hpf 05/29/24 05/29/24 Range/Units 13:55 14:09 WBC (3.8-10.6) k/uL RBC (3.80-5.40) m/uL Hgb (11.4-16.0) gm/dL Hct (34.0-46.0) % MCV (80.0-100.0) fL MCH (25.0-35.0) pg MCHC (31.0-37.0) g/dL RDW (11.5-15.5) % Plt Count (150-450) k/uL MPV Neutrophils % % Lymphocytes % % Monocytes % % Eosinophils % % Basophils % % Neutrophils # (1.3-7.7) k/uL Lymphocytes # (1.0-4.8) k/uL Monocytes # (0-1.0) k/uL Eosinophils # (0-0.7) k/uL Basophils # (0-0.2) k/uL PT (10.0-12.5) sec INR (<1.2) APTT (22.0-30.0) sec Sodium (137-145) mmol/L Potassium (3.5-5.1) mmol/L Chloride (98-107) mmol/L Carbon Dioxide (22-30) mmol/L Anion Gap mmol/L BUN (7-17) mg/dL Creatinine (0.52-1.04) mg/dL Est GFR (CKD-EPI)AfAm (>60 ml/min/1.73 sqM) Est GFR (CKD-EPI)NonAf (>60 ml/min/1.73 sqM) Glucose (74-99) mg/dL Calcium (8.4-10.2) mg/dL Magnesium (1.6-2.3) mg/dL Total Bilirubin (0.2-1.3) mg/dL AST (14-36) U/L ALT (4-34) U/L Alkaline Phosphatase (38-126) U/L Troponin I <0.012 (0.000-0.034) ng/mL Total Protein (6.3-8.2) g/dL Albumin (3.5-5.0) g/dL Amylase (30-110) U/L Lipase (23-300) U/L Urine Color Yellow Urine Appearance Cloudy H (Clear) Urine pH 6.0 (5.0-8.0) Ur Specific [place] 1.023 (1.001-1.035) Urine Protein Trace H (Negative) Urine Glucose (UA) Negative (Negative) Urine Ketones 2+ H (Negative) Urine Blood Negative (Negative) Urine Nitrite Positive H (Negative) Urine Bilirubin Negative (Negative) Urine Urobilinogen <2.0 (<2.0) mg/dL Ur Leukocyte Esterase Small H (Negative) Urine RBC 2 (0-5) /hpf Urine WBC 7 H (0-5) /hpf Ur Squamous Epith Cells <1 (0-4) /hpf Urine Bacteria Moderate H (None) /hpf Urine Mucus Many H (None) /hpf Disposition <Debbie Pisano - Last Filed: 05/29/24 13:54> Is patient prescribed a controlled substance at d/c from ED?: No Time of Disposition: 16:10 <Basil Velasquez - Last Filed: 06/05/24 02:57> Clinical Impression: UTI (urinary tract infection), Nausea & vomiting, Weakness, Chest pain, GERD (gastroesophageal reflux disease) Disposition: HOME SELF-CARE Condition: Fair Instructions (If sedation given, give patient instructions): Urinary Tract Infection in Women (ED), Acute Nausea and Vomiting (ED) Prescriptions: Cephalexin [Keflex] 500 mg PO Q6HR #28 cap Ondansetron Odt [Zofran ODT] 4 mg PO Q8HR PRN #30 tab PRN Reason: nausea/vomiting Referrals: Rex Osborne MD [Primary Care Provider] - 1-2 days
[2024-05-29 14:09] LABS: Basophils % (A) 0 %; Eosinophils % (A) 1 %; HCT 41.4 % (34.0-46.0); HGB 13.3 gm/dL (11.4-16.0); Lymphocytes # (A) 0.4 k/uL (1.0-4.8); Lymphocytes % (A) 6 %; MCH 27.1 pg (25.0-35.0); MCHC 32.2 g/dL (31.0-37.0); MCV 84.2 fL (80.0-100.0); Mean Platelet Volume 7.3; Monocytes # (A) 0.1 k/uL (0-1.0); Monocytes % (A) 2 %; Neutrophils # (A) 5.5 k/uL (1.3-7.7); Neutrophils % (A) 90 %; Platelet Count 266 k/uL (150-450); RBC 4.92 m/uL (3.80-5.40); RDW 13.1 % (11.5-15.5); WBC 6.1 k/uL (3.8-10.6)
[2024-05-29 14:32] LABS: ALT 21 U/L (4-34); AST 26 U/L (14-36); African American GFR (CKD) >90 (>60 ml/min/1.73 sqM); Albumin 4.4 g/dL (3.5-5.0); Alkaline Phosphatase 129 U/L (38-126); Amylase 55 U/L (30-110); Anion Gap 10 mmol/L; Blood Urea Nitrogen 14 mg/dL (7-17); Calcium 10.4 mg/dL (8.4-10.2); Carbon Dioxide 22 mmol/L (22-30); Chloride 105 mmol/L (98-107); Glucose 167 mg/dL (74-99); Lipase 49 U/L (23-300); Magnesium 1.7 mg/dL (1.6-2.3); Non-African American GFR(CKD) >90 (>60 ml/min/1.73 sqM); Potassium 4.1 mmol/L (3.5-5.1); Sodium 137 mmol/L (137-145); Total Protein 7.6 g/dL (6.3-8.2)
[2024-05-29 14:55] LABS: Appearance,Urine Cloudy (Clear); Bacteria,Urine Moderate /hpf; Bilirubin,Urine Negative (Negative); Blood,Urine Negative (Negative); Color,Urine Yellow; Glucose,Urine (UA) Negative (Negative); Ketones,Urine 2+ (Negative); Leukocyte Esterase,Urine Small (Negative); Mucus,Urine Many /hpf; Nitrite,Urine Positive (Negative); Protein,Urine Trace (Negative); RBC,Urine 2 /hpf (0-5); Specific Gravity,Urine 1.023 (1.001-1.035); Squamous Epithelial Cell,Urine <1 /hpf (0-4); Urobilinogen,Urine <2.0 mg/dL (<2.0); WBC,Urine 7 /hpf (0-5)
--- NOTE | 2024-05-29 15:00 | XR ---
EXAMINATION TYPE: XR chest 2V DATE OF EXAM: 05/29/2024 COMPARISON: 07/28/2023 INDICATION: Nausea vomiting chest pain TECHNIQUE: Frontal and lateral views of the chest are obtained. FINDINGS: The heart size is normal. The pulmonary vasculature is normal. The lungs are clear. Bilateral hernia is present. Air-fluid levels present within the hiatal hernia. There is increased kyphosis in thoracic spine. IMPRESSION: 1. No acute pulmonary process. 2. Small hiatal hernia.
[2024-05-29] MEDS: ONDANSETRON ODT 4 MG TAB PO STA (16:43)
[2024-05-29] MEDS: cefTRIAXone IN SWFI 1,000 MG/10 ML SYRINGE IVP STA (16:43)
[2024-05-29] MEDS: ONDANSETRON 4 MG/2 ML VIAL IVP STA (16:43)
[2024-05-29] MEDS: ONDANSETRON 4 MG ODT STARTER PACK 2 TAB BTL PO STA (16:44)
[2024-05-29] MEDS: SODIUM CHLORIDE 0.9% 1,000 ML IV STA (16:53)
== END 2024-05-29 16:56 | disposition home or self-care (01) ==
LOC: EC 13:17
DX: N39.0 Urinary tract infection, site not specified (principal); K21.9 Gastro-esophageal reflux disease without esophagitis; Z87.891 Personal history of nicotine dependence
CPT/HCPCS: 36415; 93005; 80053; 82150; 83690; 83735; 84484; 85025; 85610; 85730; 81001; 71046; 99285; 96374; 96375; 96376; J2405; J0696; S0119